=== PATIENT | male | born 1935 | race Caucasian/White ===

== ENCOUNTER 2016-06-12 13:57 | Emergency (ER) | payer MEDICARE, BC ==
[2016-06-12] MEDS ORDERED: PROMETHAZINE HCL 25 MG/ML VIAL IVP ONE (15:06)
[2016-06-12 15:33] LABS: HEMATOCRIT 45.5 % (42.0-52.0); HEMOGLOBIN 15.3 gm/dl (14.0-18.0); MEAN CELL VOLUME 90.6 fl (81-97); MEAN CORPUSCULAR HEMOGLOBIN 30.5 pg (27-33); MEAN CORPUSCULAR HGB CONC 33.6 g/dl (32-36); MEAN PLATELET VOLUME 10.9 fl (7.4-10.4); PLATELET COUNT 316 K/uL (130-400); RED BLOOD COUNT 5.02 M/uL (4.40-5.70); RED CELL DISTRIBUTION WIDTH 13.8 % (11.5-14.5); WHITE BLOOD COUNT W/O DIFF 10.3 K/uL (4.2-12.2)
[2016-06-12 15:44] LABS: ALB/GLOB RATIO 1.6 (1.1-1.8); ALBUMIN 4.6 gm/dL (3.5-5.0); ALKALINE PHOSPHATASE 94 U/L (38-126); ALT/SGPT 31 U/L (21-72); ANION GAP 13.6 (7-16); AST/SGOT 24 U/L (17-59); BLOOD UREA NITROGEN 23 mg/dL (9-20); CARBON DIOXIDE 26.4 mmol/L (22-30); CREATININE 1.2 mg/dL (0.66-1.25); EST GLOMERULAR FILTRATION RATE > 60 ml/min; GLUCOSE,RANDOM 139 mg/dL (70-110); LIPASE 79 U/L (23-300); TOTAL PROTEIN 7.5 gm/dL (6.3-8.2)
[2016-06-12 17:15] LABS: URINE APPEARANCE CLEAR; URINE BILIRUBIN NEGATIVE (NEGATIVE); URINE BLOOD NEGATIVE (NEGATIVE); URINE COLOR YELLOW; URINE KETONE 15 mg/dL (NEGATIVE); URINE LEUKOCYTE ESTERASE NEGATIVE (NEGATIVE); URINE NITRITE NEGATIVE (NEGATIVE); URINE PROTEIN NEGATIVE (NEGATIVE); URINE UROBILINOGEN 0.2 E.U./dL (0.20 - 1.00)
--- NOTE | 2016-06-12 17:30 | Emergency Department Record ---
History of Present Illness - General Chief complaint: Nausea, Vomiting, Diarrhea Stated complaint: WEAK,VOMITING Time Seen by Provider: 06/12/16 14:04 Source: Patient, Family Mode of Arrival: Wheelchair Limitations: No limitations - History of Present Illness Initial comments: pt brought in by daughter for vomiting. pt vomited twice. MD complaint: Nausea, Vomiting Onset/Timin -: Hour(s) Improves with: None Worsens with: None Associated Symptoms: Nausea/vomiting - Related Data Home Medications Medication Instructions Recorded Confirmed Last Taken Amlodipine Besylate [Amlodipine 5 mg PO DAILY 10/16/13 11/05/15 11/04/15 Besylate] Memantine HCl [Namenda Xr] 28 mg PO DAILY 10/16/13 11/05/15 11/04/15 Pregabalin [Lyrica] 75 mg PO BID 10/16/13 11/05/15 11/04/15 Rivastigmine [Exelon] 13.3 mg TOP DAILY 10/16/13 11/05/15 11/04/15 Rosuvastatin Calcium [Crestor] 10 mg PO QHS 10/16/13 11/05/15 11/04/15 Previous Rx's Medication Instructions Recorded Omeprazole [Prilosec] 20 mg PO DAILY #30 capsule. 12/10/13 Allergies Allergy/AdvReac Type Severity Reaction Status Date / Time shellfish derived Allergy Unknown ANAPHYLAXIS Verified 06/12/16 15:26 [SHELLFISH DERIVED] Latex Allergy: Allergy Unknown RASH Uncoded 03/25/15 11:18 Travel Screening - Travel/Exposure Within Last 30 Days Have you traveled within the last 30 days?: No - Travel/Exposure Within Last Year Have you traveled outside the [place] in the last year?: No - Additonal Travel Details Have you been exposed to anyone with a communicable illness?: No - Travel Symptoms Symptom Screening: None Review of Systems Reviewed: No additional complaints except as noted below Constitutional: Reports: As per HPI. Denies: Chills, Fever, Malaise, Night sweats, Weakness, Weight change Eyes: Reports: As per HPI. Denies: Eye discharge, Eye pain, Photophobia, Vision change ENT: Reports: As per HPI. Denies: Congestion, Dental pain, Ear pain, Epistaxis , Hearing loss, Throat pain Respiratory: Reports: As per HPI. Denies: Cough, Dyspnea, Hemoptysis, Stridor, Wheezes Cardiovascular: Reports: As per HPI. Denies: Arrhythmia, Chest pain, Dyspnea on exertion, Edema, Murmurs, Orthopnea, Palpitations, Paroxysmal nocturnal dyspnea, Rheumatic Fever, Syncope Endocrine: Reports: As per HPI. Denies: Fatigue, Heat or cold intolerance, Polydipsia, Polyuria Gastrointestinal: Reports: As per HPI. Denies: Abdominal pain, Constipation, Diarrhea, Hematemesis, Hematochezia, Melena, Nausea, Vomiting Genitourinary: Reports: As per HPI. Denies: Dysuria, Frequency, Hematuria, Incontinence, Retention, Testicular pain, Testicular mass, Urgency Musculoskeletal: Reports: As per HPI. Denies: Arthralgia, Back pain, Gout, Joint swelling, Myalgia, Neck pain Skin: Reports: As per HPI. Denies: Bruising, Change in color, Change in hair/ nails, Lesions, Pruritus, Rash Neurological: Reports: As per HPI. Denies: Abnormal gait, Confusion, Headache, Numbness, Paresthesias, Seizure, Tingling, Tremors, Vertigo, Weakness Psychiatric: Reports: As per HPI. Denies: Anxiety, Auditory hallucinations, Depression, Homicidal thoughts, Suicidal thoughts, Visual hallucinations Hematological/Lymphatic: Reports: As per HPI. Denies: Anemia, Blood Clots, Easy bleeding, Easy bruising, Swollen glands Past Medical History - SOCIAL HISTORY Smoking Status: Never smoker Alcohol Use: None Drug Use: None - RESPIRATORY Hx Respiratory Disorders: Yes Hx Asthma: Yes - CARDIOVASCULAR Hx Cardio Disorders: Yes Hx Hypertension: Yes Comment:: hypercholesteremia - NEURO Hx Neuro Disorders: Yes Hx Dementia: Yes (Alzheimers) - GI Hx GI Disorders: Yes Hx Reflux: Yes - Hx Genitourinary Disorders: No - ENDOCRINE Hx Endocrine Disorders: No - MUSCULOSKELETAL Hx Musculoskeletal Disorders: Yes Hx Arthritis: Yes - PSYCH Hx Psych Problems: No - HEMATOLOGY/ONCOLOGY Hx Hematology/Oncology Disorders: No Family Medical History Any Significant Family History?: No Family Hx Comment (NOT TO BE USED IN PLACE OF ITEMS BELOW): unknown at this time Physical Exam - General General Appearance: Alert, Oriented x3, Cooperative, Mild distress - Head Head exam: Normal inspection - Eye Eye exam: Normal appearance, PERRL, EOMI Pupils: Normal accommodation - ENT ENT exam: Normal exam, Mucous membranes moist, Normal external ear exam, Normal orophraynx Ear exam: Normal external inspection. negative: External canal tenderness Nasal Exam: Normal inspection. negative: Discharge, Sinus tenderness Mouth exam: Normal external inspection, Tongue normal Teeth exam: Normal inspection. negative: Dental caries Throat exam: Normal inspection. negative: Tonsillar erythema, Tonsillar exudate - Neck Neck exam: Normal inspection, Full ROM. negative: Tenderness - Respiratory Respiratory exam: Normal lung sounds bilaterally. negative: Respiratory distress - Cardiovascular Cardiovascular Exam: Regular rate, Normal rhythm, Normal heart sounds - GI/Abdominal GI/Abdominal exam: Soft, Normal bowel sounds. negative: Tenderness - Rectal Rectal exam: Deferred - exam: Deferred - Extremities Extremities exam: Normal inspection, Full ROM, Normal capillary refill. negative: Tenderness - Back Back exam: Reports: Normal inspection, Full ROM. Denies: Muscle spasm, Rash noted, Tenderness - Neurological Neurological exam: Alert, CN II-XII intact, Normal gait, Oriented X3 - Psychiatric Psychiatric exam: Normal affect, Normal mood - Skin Skin exam: Dry, Intact, Normal color, Warm Course Vital Signs 06/12/16 06/12/16 14:04 17:11 Temperature 97.4 F L 97.5 F L Pulse Rate 57 L Pulse Rate [ 83 Pulse Ox Probe] Respiratory 18 16 Rate Blood Pressure 141/73 Blood Pressure 144/76 [Left Arm] Pulse Ox 98 97 - Reevaluation(s) Reevaluation #1: 06/12/16 17:30 pt has had no further vomiting and states he feels fine Medical Decision Making - Lab Data Result diagrams: 06/12/16 15:25 06/12/16 15:25 Lab Results 06/12/16 06/12/16 06/12/16 Range/Units 15:25 15:25 15:25 WBC 10.3 (4.2-12.2) K/uL RBC 5.02 (4.40-5.70) M/uL Hgb 15.3 (14.0-18.0) gm/dl Hct 45.5 (42.0-52.0) % MCV 90.6 (81-97) fl MCH 30.5 (27-33) pg MCHC 33.6 (32-36) g/dl RDW 13.8 (11.5-14.5) % Plt Count 316 (130-400) K/uL MPV 10.9 H (7.4-10.4) fl Neutrophils % 92.0 H (47-80) % Lymphocytes % 5.0 L (16-45) % Monocytes % 3.0 (0-9) % Eosinophils % Not Reportable Basophils % Not Reportable Sodium 137 (136-145) mmol/L Potassium 4.2 (3.5-5.1) mmol/L Chloride 97 L (98-107) mmol/L Carbon Dioxide 26.4 (22-30) mmol/L Anion Gap 13.6 (7-16) BUN 23 H (9-20) mg/dL Creatinine 1.2 (0.66-1.25) mg/dL Estimated GFR > 60 ml/min Random Glucose 139 H (70-110) mg/dL Calcium 9.2 (8.5-10.1) mg/dL Total Bilirubin 0.90 (0.2-1.3) mg/dL AST 24 (17-59) U/L ALT 31 (21-72) U/L Alkaline Phosphatase 94 (38-126) U/L Total Protein 7.5 (6.3-8.2) gm/dL Albumin 4.6 (3.5-5.0) gm/dL Globulin 2.9 (1.4-4.8) gm/dL Albumin/Globulin Ratio 1.6 (1.1-1.8) Lipase 79 (23-300) U/L Urine Color Yellow Urine Appearance Clear Urine pH 8.0 (5.0-8.0) Ur Specific [place] 1.015 (1.002-1.030) Urine Protein Negative (NEGATIVE) Urine Glucose (UA) 100 mg/dl H (NEGATIVE) Urine Ketones 15 mg/dl H (NEGATIVE) Urine Blood Negative (NEGATIVE) Urine Nitrite Negative (NEGATIVE) Urine Bilirubin Negative (NEGATIVE) Urine Urobilinogen 0.2 (0.20 - 1.00) E.U./dL Ur Leukocyte Esterase Negative (NEGATIVE) Disposition Disposition: Discharge Clinical Impression: Vomiting Qualifiers: Vomiting type: unspecified Vomiting Intractability: unspecified Nausea presence : with nausea Qualified Code(s): R11.2 - Nausea with vomiting, unspecified Disposition: Home, Self-Care Condition: (1) Good Instructions: Acute Nausea and Vomiting (ED) Additional Instructions: follow up with family doctor. return sooner if worse. monitor closely Forms: Patient Portal Access
== END 2016-06-12 17:46 | disposition home or self-care (01) ==
LOC: ER 13:57
DX: R11.2 Nausea with vomiting, unspecified (principal); R19.7 Diarrhea, unspecified; R53.1 Weakness; I10 Essential (primary) hypertension
CPT/HCPCS: 80053; 81003; 83690; 85027; 96374; 99284; J2550

== ENCOUNTER 2017-06-08 13:06 | Emergency (ER) | payer MEDICARE, BC ==
[2017-06-08] MEDS ORDERED: 0.9 % SODIUM CHLORIDE 1,000 ML BAG IV ONE (13:34)
[2017-06-08] MEDS ORDERED: ONDANSETRON HCL IV 4 MG/2 ML VIAL IVP ONE (13:34)
--- NOTE | 2017-06-08 13:41 | Emergency Department Record ---
History of Present Illness - General Stated Complaint: VOMITING Time Seen by Provider: 06/08/17 13:34 Source: Patient Mode of Arrival: Ambulatory Limitations: No limitations - History of Present Illness Initial Comments: 81 yo male presents with vomiting and decreased appetite. He has not felt well this week. His daughter reports he is eating less and drinking less. He has allergies that cause nasal congestion. He has vomited in the mornings several times. He denies any abdominal pain just nausea. No diarrhea. No fevers. He has been somewhat frail over the last year but still lives alone with daily home health aid 6 days a week for 4 hours. MD Complaint: Abdominal pain -: Days(s) (1) Location: Other Radiation: None Migration to: No migration Severity: Moderate Quality: Other (Nausea) Improves With: Nothing Worsens With: Nothing - Related Data Previous Rx's Medication Instructions Recorded Ondansetron [Zofran Odt] 4 mg PO Q8H #12 tab.rapdis 06/08/17 Allergies Allergy/AdvReac Type Severity Reaction Status Date / Time shellfish derived Allergy Unknown ANAPHYLAXIS Unverified 03/11/17 09:15 [SHELLFISH DERIVED] Latex Allergy: Allergy Unknown RASH Uncoded 03/25/15 11:18 Review of Systems Constitutional: Reports: Malaise, Weakness. Denies: Chills, Fever Eyes: Denies: Eye discharge ENT: Denies: Congestion, Throat pain Respiratory: Denies: Cough, Stridor, Wheezes Cardiovascular: Denies: Chest pain, Syncope Endocrine: Reports: Fatigue Gastrointestinal: Reports: Vomiting Genitourinary: Denies: Dysuria, Frequency, Hematuria Musculoskeletal: Denies: Arthralgia, Back pain, Myalgia Skin: Denies: Bruising, Change in color, Rash Neurological: Denies: Confusion Psychiatric: Denies: Anxiety Hematological/Lymphatic: Denies: Blood Clots, Easy bleeding, Easy bruising, Swollen glands Past Medical History - SOCIAL HISTORY Smoking Status: Never smoker Drug Use: None - RESPIRATORY Hx Respiratory Disorders: Yes Hx Asthma: Yes - CARDIOVASCULAR Hx Cardio Disorders: Yes Hx Hypertension: Yes Comment:: hypercholesteremia - NEURO Hx Neuro Disorders: Yes Hx Dementia: Yes (Alzheimers) - GI Hx GI Disorders: Yes Hx Reflux: Yes - Hx Genitourinary Disorders: No - ENDOCRINE Hx Endocrine Disorders: No - MUSCULOSKELETAL Hx Musculoskeletal Disorders: Yes Hx Arthritis: Yes - PSYCH Hx Psych Problems: No - HEMATOLOGY/ONCOLOGY Hx Hematology/Oncology Disorders: No Family Medical History Family Hx Comment (NOT TO BE USED IN PLACE OF ITEMS BELOW): unknown at this time Physical Exam - General General Appearance: Alert, Cooperative, No acute distress Limitations: No limitations (chronic dementia) - Head Head exam: Atraumatic, Normal inspection Head exam detail: negative: Abrasion, Contusion, Hematoma - Eye Eye exam: Normal appearance, PERRL. negative: Conjunctival injection, Scleral icterus - ENT ENT exam: Normal exam, Mucous membranes moist, Normal orophraynx. negative: Mucous membranes dry Ear exam: Normal external inspection Nasal Exam: Normal inspection Mouth exam: Normal external inspection Teeth exam: Normal inspection Throat exam: Normal inspection. negative: Tonsillar erythema, Tonsillar exudate - Neck Neck exam: Normal inspection, Full ROM. negative: Tenderness - Respiratory Respiratory exam: Normal lung sounds bilaterally. negative: Accessory muscle use, Respiratory distress, Rhonchi, Stridor, Wheezes - Cardiovascular Cardiovascular Exam: Regular rate, Normal rhythm, Normal heart sounds - GI/Abdominal GI/Abdominal exam: Soft. negative: Distended, Guarding, Mass, Rebound, Rigid, Tenderness - Rectal Rectal exam: Deferred - exam: Deferred - Extremities Extremities exam: Normal inspection, Full ROM, Normal capillary refill. negative: Pedal edema, Tenderness - Back Back exam: Reports: Normal inspection - Neurological Neurological exam: Alert, Normal gait, Oriented X3, Reflexes normal - Psychiatric Psychiatric exam: Normal affect, Normal mood. negative: Agitated, Anxious - Skin Skin exam: Dry, Intact, Normal color, Warm Course Vital Signs 06/08/17 13:23 Temperature 97.4 F L Pulse Rate [ 77 Pulse Ox Probe] Respiratory 14 Rate Blood Pressure 163/78 [Left Arm] Pulse Ox 98 - Reevaluation(s) Reevaluation #1: 06/08/17 15:15 The labs were reviewed CR is 1.3 which is improved from the last CR No acute changes on the CMP,Lipase The CBC no acute changes The patient is much improved with the Zofran and is on a PO challenge 06/08/17 16:09 The patient is doing very well. He ate a sandwich and drink. He is hungry for a Whopper now. We discussed daily weighing to track a trend, discussed reasons to return to the ED He has followup on Saturday with PCP Medical Decision Making - Lab Data Result diagrams: 06/08/17 14:00 06/08/17 14:00 Disposition Disposition: Discharge Clinical Impression: Vomiting Disposition: Home, Self-Care Condition: (1) Good Instructions: Acute Nausea and Vomiting (ED) Additional Instructions: Follow up on Saturday as scheduled with your family doctor Return sooner if worse, vomiting, fever, pain or any concerns You may use a Zofran every 8-12 hours if nausea Weigh yourself daily or every other day and keep track. You weighed 142 pounds 12 ounces today Prescriptions: Ondansetron [Zofran Odt] 4 mg PO Q8H #12 tab.rapdis Time of Disposition: 16:11 Quality - Quality Measures Quality Measures: N/A - Blood Pressure Screening Does Patient Have Any of the Following: Active Dx of HTN Blood Pressure Classification: Hypertensive Reading Systolic Measurement: 160 Diastolic Measurement: 78 Screening for High Blood Pressure: Patient Exclusion, Hx of HTN [G9744]
[2017-06-08 14:09] LABS: BASO % 0.3 % (0-6); EOS % 0.6 % (0-6); GRAN % 71.3 % (47-80); HEMATOCRIT 43.7 % (42.0-52.0); HEMOGLOBIN 14.6 gm/dl (14.0-18.0); LYMPH % 19.2 % (16-45); MEAN CELL VOLUME 90.9 fl (81-97); MEAN CORPUSCULAR HEMOGLOBIN 30.4 pg (27-33); MEAN CORPUSCULAR HGB CONC 33.4 g/dl (32-36); MEAN PLATELET VOLUME 9.7 fl (7.4-10.4); MONO % 8.6 % (0-9); PLATELET COUNT 338 K/uL (130-400); RED BLOOD COUNT 4.81 M/uL (4.40-5.70); RED CELL DISTRIBUTION WIDTH 13.6 % (11.5-14.5); WHITE BLOOD COUNT W/O DIFF 7.9 K/uL (4.2-12.2)
[2017-06-08 14:27] LABS: BILIRUBIN,TOTAL 0.7 mg/dL (0.2-1.0); CREATININE 1.3 mg/dL (0.7-1.2); TOTAL PROTEIN 7.2 g/dL (6.6-8.7)
[2017-06-08 14:32] LABS: ALB/GLOB RATIO 1.7 (1.1-1.8); ALBUMIN 4.5 g/dL (4.0-5.0)
[2017-06-08 14:42] LABS: URINE APPEARANCE CLEAR; URINE BILIRUBIN NEGATIVE (NEGATIVE); URINE BLOOD NEGATIVE (NEGATIVE); URINE COLOR YELLOW; URINE GLUCOSE (UA) NEGATIVE (NEGATIVE); URINE KETONE TRACE (NEGATIVE); URINE LEUKOCYTE ESTERASE NEGATIVE (NEGATIVE); URINE NITRITE NEGATIVE (NEGATIVE); URINE PROTEIN NEGATIVE (NEGATIVE); URINE UROBILINOGEN 0.2 E.U./dL (0.20 - 1.00)
== END 2017-06-08 16:22 | disposition home or self-care (01) ==
LOC: ER 13:06
DX: R11.2 Nausea with vomiting, unspecified (principal); I10 Essential (primary) hypertension; G30.9 Alzheimer's disease, unspecified; F02.80 Dementia in other diseases classified elsewhere, unspecified severity, without behavioral disturbance, psychotic disturbance, mood disturbance, and anxiety
CPT/HCPCS: 99284 ×2; 96374; 96361; 83690; 85025; 80053; 81003; J2405; J7030

== ENCOUNTER 2017-08-12 15:43 | Emergency (ER) | payer MEDICARE, BC ==
--- NOTE | 2017-08-12 16:14 | Emergency Department Record ---
History of Present Illness - General Chief complaint: Weakness Stated complaint: CONFUSSION,WEAK,SHAKEY Time Seen by Provider: 08/12/17 16:13 Source: Patient, Family Mode of Arrival: Wheelchair Limitations: Other (chronic dementia) - History of Present Illness Initial comments: 81 yo male presents to the ED with his daughter for acute confusion. The patient lives on his own. He does have a rn critical care 3 hours 6 days a week. This afternoon he seemed confused, wandered in the yard to coal picker sticks. No injury, no pain, no weakness. He states he is tired and does not remember going out in to the yard. He has chronic memory issues. The daughter states he is near his baseline now. No dysarthia. No vision changes. MD Complaint: Generalized weakness -: Unknown Location: Generalized Severity: Mild Consistency: Constant Improves with: None Worsens with: None Associated Symptoms: Other - [place] Coma Scale Eye Response: (4) Open spontaneously Motor Response: (6) Obeys commands Verbal Response: (5) Oriented Trupti Total: 15 - Related Data Allergies Allergy/AdvReac Type Severity Reaction Status Date / Time shellfish derived Allergy Unknown ANAPHYLAXIS Unverified 06/10/17 11:50 [SHELLFISH DERIVED] Latex Allergy: Allergy Unknown RASH Uncoded 03/25/15 11:18 Travel Screening - Travel/Exposure Within Last 30 Days Have you traveled within the last 30 days?: No Review of Systems Constitutional: Denies: Chills, Fever, Malaise, Weakness Eyes: Denies: Eye discharge ENT: Denies: Congestion, Throat pain Respiratory: Denies: Cough, Dyspnea, Hemoptysis, Stridor, Wheezes Cardiovascular: Denies: Chest pain, Palpitations, Syncope Endocrine: Reports: Fatigue Gastrointestinal: Denies: Abdominal pain, Diarrhea, Nausea, Vomiting Genitourinary: Denies: Dysuria, Frequency, Hematuria Musculoskeletal: Denies: Arthralgia, Back pain, Joint swelling, Myalgia, Neck pain Skin: Denies: Bruising, Change in color, Rash Neurological: Reports: Confusion. Denies: Abnormal gait, Headache, Numbness, Seizure, Tingling, Tremors, Vertigo, Weakness Psychiatric: Denies: Anxiety Hematological/Lymphatic: Denies: Blood Clots, Easy bleeding, Easy bruising, Swollen glands Past Medical History - SOCIAL HISTORY Smoking Status: Never smoker Alcohol Use: None Drug Use: None - RESPIRATORY Hx Respiratory Disorders: Yes Hx Asthma: Yes - CARDIOVASCULAR Hx Cardio Disorders: Yes Hx Hypertension: Yes Comment:: hypercholesteremia - NEURO Hx Neuro Disorders: Yes Hx Dementia: Yes (Alzheimers) - GI Hx GI Disorders: Yes Hx Reflux: Yes - Hx Genitourinary Disorders: No - ENDOCRINE Hx Endocrine Disorders: No - MUSCULOSKELETAL Hx Musculoskeletal Disorders: Yes Hx Arthritis: Yes - PSYCH Hx Psych Problems: No - HEMATOLOGY/ONCOLOGY Hx Hematology/Oncology Disorders: No Family Medical History Any Significant Family History?: No Family Hx Comment (NOT TO BE USED IN PLACE OF ITEMS BELOW): unknown at this time Physical Exam - General General Appearance: Alert, Cooperative, No acute distress, Other (alert to place , name, and duaghter's name. She states this is baseline) Limitations: No limitations - Head Head exam: Atraumatic, Normocephalic, Normal inspection - Eye Eye exam: Normal appearance, PERRL. negative: Conjunctival injection, Scleral icterus - ENT ENT exam: Normal exam, Mucous membranes moist Ear exam: Normal external inspection Nasal Exam: Normal inspection Mouth exam: Normal external inspection Teeth exam: Normal inspection Throat exam: Normal inspection - Neck Neck exam: Normal inspection, Full ROM. negative: Tenderness - Respiratory Respiratory exam: Normal lung sounds bilaterally. negative: Respiratory distress - Cardiovascular Cardiovascular Exam: Regular rate, Normal rhythm, Normal heart sounds Peripheral Pulses: 2+: Radial (R), Radial (L) - GI/Abdominal GI/Abdominal exam: Soft. negative: Tenderness - Rectal Rectal exam: Deferred - exam: Deferred - Extremities Extremities exam: Normal inspection, Full ROM, Normal capillary refill. negative: Pedal edema, Tenderness - Back Back exam: Reports: Normal inspection, Full ROM. Denies: Muscle spasm, Rash noted, Tenderness - Neurological Neurological exam: Alert, CN II-XII intact, Normal gait, Other (Baseline per daughter, convsational, clear speech, noted memory impariment (old per daughter) ). negative: Abnormal gait, Altered, Motor sensory deficit, Oriented X3 (At his baseline per daughter) - Psychiatric Psychiatric exam: Normal affect, Normal mood - Skin Skin exam: Dry, Intact, Normal color, Warm Course Vital Signs 08/12/17 15:51 Temperature 97.3 F L Pulse Rate 68 Respiratory 16 Rate Blood Pressure 168/81 Pulse Ox 96 - Reevaluation(s) Reevaluation #1: EKG rate is 66, sinus rhythm, axis is left, ST no acute changes, poor R wave progression. No changes from 11/05/15 08/12/17 16:13 08/12/17 17:15 The CBC and CMP were reviewed. No acute changes. UA is pending. The HCT was read as atrophy and small vessel ischemic disease. No acute process. 08/12/17 18:18 UA is normal His daughter is comfortable that the patient is at his baseline She is comfortable taking him home. She monitors him as well as he has home health care. 08/12/17 18:50 The patient is doing very well after his IVF. He is at his baseline stable for DC Medical Decision Making - Lab Data Result diagrams: 08/12/17 16:00 08/12/17 16:00 Disposition Disposition: Discharge Clinical Impression: Weakness generalized, Dehydration Disposition: Home, Self-Care Condition: (1) Good Instructions: Weakness (ED) Additional Instructions: Rest and stay well hydrated Return to the ED if you have any new concerns, return of symptoms or questions Call your family doctor tomorrow for close follow up Forms: Patient Portal Access Time of Disposition: 18:24 Quality - Quality Measures Quality Measures: N/A - Blood Pressure Screening Does Patient Have Any of the Following: Active Dx of HTN Blood Pressure Classification: Pre-Hypertensive BP Reading Systolic Measurement: 168 Diastolic Measurement: 81 Screening for High Blood Pressure: Patient Exclusion, Hx of HTN [G9744]
[2017-08-12] MEDS ORDERED: SODIUM CHLORIDE 0.9% 500 ML IV ONE (16:20)
[2017-08-12 16:44] LABS: BASO % 0.1 % (0-6); EOS % 0.6 % (0-6); GRAN % 65.3 % (47-80); HEMATOCRIT 44.9 % (42.0-52.0); LYMPH % 26.5 % (16-45); MEAN CELL VOLUME 90.5 fl (81-97); MEAN CORPUSCULAR HEMOGLOBIN 30.2 pg (27-33); MEAN CORPUSCULAR HGB CONC 33.4 g/dl (32-36); MEAN PLATELET VOLUME 10.9 fl (7.4-10.4); MONO % 7.5 % (0-9); PLATELET COUNT 364 K/uL (130-400); RED BLOOD COUNT 4.96 M/uL (4.40-5.70); RED CELL DISTRIBUTION WIDTH 14.2 % (11.5-14.5); WHITE BLOOD COUNT W/O DIFF 7.2 K/uL (4.2-12.2)
[2017-08-12 16:49] LABS: BLOOD UREA NITROGEN 25 mg/dL (8-23); CREATININE 1.1 mg/dL (0.7-1.2); EST GLOMERULAR FILTRATION RATE > 60 mL/min
[2017-08-12 16:50] LABS: TOTAL PROTEIN 7.3 g/dL (6.6-8.7)
[2017-08-12 16:52] LABS: GLUCOSE,RANDOM 112 mg/dL (74-109)
[2017-08-12 16:55] LABS: ALB/GLOB RATIO 1.7 (1.1-1.8); ALBUMIN 4.6 g/dL (4.0-5.0); ALKALINE PHOSPHATASE 92 U/L (40-129); ALT/SGPT 11 U/L (<41); AST/SGOT 20 U/L (10.0-50.0)
[2017-08-12 18:10] LABS: URINE APPEARANCE CLEAR; URINE BILIRUBIN NEGATIVE (NEGATIVE); URINE BLOOD NEGATIVE (NEGATIVE); URINE COLOR YELLOW; URINE GLUCOSE (UA) NEGATIVE (NEGATIVE); URINE KETONE 15 mg/dL (NEGATIVE); URINE LEUKOCYTE ESTERASE NEGATIVE (NEGATIVE); URINE NITRITE NEGATIVE (NEGATIVE); URINE PROTEIN NEGATIVE (NEGATIVE); URINE UROBILINOGEN 0.2 E.U./dL (0.20 - 1.00)
--- NOTE | 2017-08-13 08:30 | CT SCAN REPORT ---
EXAM: CT OF THE BRAIN WITHOUT CONTRAST HISTORY: WEAKNESS. TECHNIQUE: CT of the brain without contrast was obtained. Comparison: Prior CT of the brain dated 03/25/15. FINDINGS: The globes are intact. The paranasal sinuses and mastoid air cells are unremarkable. No displaced or depressed skull fracture. No intra or extraaxial hemorrhage. CT is limited for evaluation of acute infarct. No CT evidence for large or territorial acute infarct. Diffuse age appropriate atrophy. Hypodensities in the periventricular and subcortical white matter consistent with sequelae of small vessel ischemic change. No mass or midline shift. IMPRESSION: ATROPHY. SMALL VESSEL ISCHEMIC CHANGE. JOB NUMBER: [id number] [facility]
== END 2017-08-12 19:02 | disposition home or self-care (01) ==
LOC: ER 15:43
DX: R53.1 Weakness (principal); E86.0 Dehydration; I10 Essential (primary) hypertension; G30.9 Alzheimer's disease, unspecified; F02.80 Dementia in other diseases classified elsewhere, unspecified severity, without behavioral disturbance, psychotic disturbance, mood disturbance, and anxiety
CPT/HCPCS: 70450; 80053; 81003; 85025; 93005; 93010; 99284

== ENCOUNTER 2017-09-08 12:11 | Inpatient (IN) | payer MEDICARE, BC ==
[2017-09-08] MEDS ORDERED: SODIUM CHLORIDE 0.9% 500 ML IV ONE (12:59)
[2017-09-08 13:28] LABS: HEMATOCRIT 43.8 % (42.0-52.0); HEMOGLOBIN 14.6 gm/dl (14.0-18.0); MEAN CELL VOLUME 90.7 fl (81-97); MEAN CORPUSCULAR HEMOGLOBIN 30.2 pg (27-33); MEAN CORPUSCULAR HGB CONC 33.3 g/dl (32-36); MEAN PLATELET VOLUME 10.8 fl (7.4-10.4); PLATELET COUNT 391 K/uL (130-400); RED BLOOD COUNT 4.83 M/uL (4.40-5.70); RED CELL DISTRIBUTION WIDTH 14.3 % (11.5-14.5); URINE APPEARANCE CLEAR; URINE BILIRUBIN NEGATIVE (NEGATIVE); URINE BLOOD NEGATIVE (NEGATIVE); URINE COLOR YELLOW; URINE KETONE NEGATIVE (NEGATIVE); URINE LEUKOCYTE ESTERASE NEGATIVE (NEGATIVE); URINE NITRITE NEGATIVE (NEGATIVE); URINE PROTEIN NEGATIVE (NEGATIVE); URINE UROBILINOGEN 0.2 E.U./dL (0.20 - 1.00); WHITE BLOOD COUNT W/O DIFF 11.8 K/uL (4.2-12.2)
[2017-09-08 13:37] LABS: PLATELET ESTIMATE NORMAL (NORMAL)
[2017-09-08 13:42] LABS: BLOOD UREA NITROGEN 25 mg/dL (8-23); CREATININE 1.2 mg/dL (0.7-1.2); EST GLOMERULAR FILTRATION RATE > 60 mL/min
[2017-09-08 13:43] LABS: TOTAL PROTEIN 7.4 g/dL (6.6-8.7)
[2017-09-08 13:45] LABS: GLUCOSE,RANDOM 164 mg/dL (74-109)
[2017-09-08 13:48] LABS: ALB/GLOB RATIO 1.6 (1.1-1.8); ALBUMIN 4.6 g/dL (4.0-5.0); ALKALINE PHOSPHATASE 91 U/L (40-129); ALT/SGPT 11 U/L (<41); AST/SGOT 22 U/L (10.0-50.0)
--- NOTE | 2017-09-08 15:09 | Emergency Department Record ---
History of Present Illness - General Chief complaint: Weakness Stated complaint: WEAK Time Seen by Provider: 09/08/17 12:30 Source: Patient Mode of Arrival: EMS - History of Present Illness Initial comments: patient was weaker than usual today and EMS brought him in to the ED and daughter. No cough and he has dementia since 2011. Onset/Timin -: Days(s) Location: Generalized Severity scale (1-10): 4 Context: History of similar Associated Symptoms: Denies other symptoms - [place] Coma Scale Eye Response: (4) Open spontaneously Motor Response: (6) Obeys commands Verbal Response: (5) Oriented [place] Total: 15 - Symptoms of Stroke Symptom Onset Unknown: Yes - Related Data Allergies Allergy/AdvReac Type Severity Reaction Status Date / Time shellfish derived Allergy Unknown ANAPHYLAXIS Verified 09/08/17 12:27 [SHELLFISH DERIVED] Latex Allergy: Allergy Unknown RASH Uncoded 09/08/17 12:27 Travel Screening - Travel/Exposure Within Last 30 Days Have you traveled within the last 30 days?: No - Travel/Exposure Within Last Year Have you traveled outside the [place] in the last year?: No - Additonal Travel Details Have you been exposed to anyone with a communicable illness?: No - Travel Symptoms Symptom Screening: None Review of Systems Reviewed: No additional complaints except as noted below Constitutional: Reports: As per HPI. Denies: Chills, Fever, Malaise, Night sweats, Weakness, Weight change Eyes: Reports: As per HPI. Denies: Eye discharge, Eye pain, Photophobia, Vision change ENT: Reports: As per HPI, Congestion. Denies: Dental pain, Ear pain, Epistaxis , Hearing loss, Throat pain Respiratory: Reports: As per HPI. Denies: Cough, Dyspnea, Hemoptysis, Stridor, Wheezes Cardiovascular: Reports: As per HPI. Denies: Arrhythmia, Chest pain, Dyspnea on exertion, Edema, Murmurs, Orthopnea, Palpitations, Paroxysmal nocturnal dyspnea, Rheumatic Fever, Syncope Endocrine: Reports: As per HPI. Denies: Fatigue, Heat or cold intolerance, Polydipsia, Polyuria Gastrointestinal: Reports: As per HPI. Denies: Abdominal pain, Constipation, Diarrhea, Hematemesis, Hematochezia, Melena, Nausea, Vomiting Genitourinary: Reports: As per HPI. Denies: Dysuria, Frequency, Hematuria, Incontinence, Retention, Testicular pain, Testicular mass, Urgency Musculoskeletal: Reports: As per HPI. Denies: Arthralgia, Back pain, Gout, Joint swelling, Myalgia, Neck pain Skin: Reports: As per HPI. Denies: Bruising, Change in color, Change in hair/ nails, Lesions, Pruritus, Rash Neurological: Reports: As per HPI. Denies: Abnormal gait, Confusion, Headache, Numbness, Paresthesias, Seizure, Tingling, Tremors, Vertigo, Weakness Psychiatric: Reports: As per HPI. Denies: Anxiety, Auditory hallucinations, Depression, Homicidal thoughts, Suicidal thoughts, Visual hallucinations Hematological/Lymphatic: Reports: As per HPI. Denies: Anemia, Blood Clots, Easy bleeding, Easy bruising, Swollen glands Past Medical History - SOCIAL HISTORY Smoking Status: Never smoker Alcohol Use: None Drug Use: None - RESPIRATORY Hx Respiratory Disorders: Yes Hx Asthma: Yes - CARDIOVASCULAR Hx Cardio Disorders: Yes Hx Hypertension: Yes Comment:: hypercholesteremia - NEURO Hx Neuro Disorders: Yes Hx Dementia: Yes (Alzheimers) - GI Hx GI Disorders: Yes Hx Reflux: Yes - Hx Genitourinary Disorders: No - ENDOCRINE Hx Endocrine Disorders: No - MUSCULOSKELETAL Hx Musculoskeletal Disorders: Yes Hx Arthritis: Yes - PSYCH Hx Psych Problems: No - HEMATOLOGY/ONCOLOGY Hx Hematology/Oncology Disorders: No Family Medical History Any Significant Family History?: Yes Family Hx Comment (NOT TO BE USED IN PLACE OF ITEMS BELOW): unknown at this time Physical Exam - General General Appearance: Alert, Oriented x3, Cooperative, No acute distress - Head Head exam: Normal inspection - Eye Eye exam: Normal appearance, PERRL Pupils: Normal accommodation - ENT ENT exam: Normal exam, Mucous membranes moist, Normal external ear exam, Normal orophraynx, TM's normal bilaterally Ear exam: Normal external inspection. negative: External canal tenderness Nasal Exam: Normal inspection. negative: Discharge, Sinus tenderness Mouth exam: Normal external inspection, Tongue normal Teeth exam: Normal inspection. negative: Dental caries Throat exam: Normal inspection. negative: Tonsillar erythema, Tonsillar exudate - Neck Neck exam: Normal inspection, Full ROM. negative: Tenderness - Respiratory Respiratory exam: Normal lung sounds bilaterally. negative: Respiratory distress - Cardiovascular Cardiovascular Exam: Regular rate, Normal rhythm, Normal heart sounds - GI/Abdominal GI/Abdominal exam: Soft, Normal bowel sounds. negative: Tenderness - Rectal Rectal exam: Deferred - exam: Deferred - Extremities Extremities exam: Normal inspection, Full ROM, Normal capillary refill. negative: Tenderness - Back Back exam: Reports: Normal inspection, Full ROM. Denies: Muscle spasm, Rash noted, Tenderness - Neurological Neurological exam: Alert, Normal gait, Oriented X3, Reflexes normal - Psychiatric Psychiatric exam: Normal affect, Normal mood - Skin Skin exam: Dry, Intact, Normal color, Warm Course Vital Signs 09/08/17 09/08/17 09/08/17 12:17 13:31 14:02 Temperature 97.1 F L Pulse Rate 88 Pulse Rate [ 72 79 Pulse Ox Probe] Respiratory 18 20 18 Rate Blood Pressure 160/92 Blood Pressure 132/86 151/80 [Right Arm] Pulse Ox 99 97 99 09/08/17 14:40 Temperature Pulse Rate Pulse Rate [ 82 Pulse Ox Probe] Respiratory 18 Rate Blood Pressure Blood Pressure 151/80 [Right Arm] Pulse Ox 100 - Reevaluation(s) Reevaluation #1: discussed case with Romana and will admit to Dr. Mtz 09/08/17 15:55 Medical Decision Making - Data Complexity MDM Data: Labs Ordered and/or Reviewed, X-Ray Ordered and/or Reviewed (right basilar atelectasis or developing infiltrate) - Lab Data Result diagrams: 09/08/17 11:58 09/08/17 11:58 Lab Results 09/08/17 09/08/17 09/08/17 Range/Units 11:58 11:58 11:58 WBC 11.8 (4.2-12.2) K/uL RBC 4.83 (4.40-5.70) M/uL Hgb 14.6 (14.0-18.0) gm/dl Hct 43.8 (42.0-52.0) % MCV 90.7 (81-97) fl MCH 30.2 (27-33) pg MCHC 33.3 (32-36) g/dl RDW 14.3 (11.5-14.5) % Plt Count 391 (130-400) K/uL MPV 10.8 H (7.4-10.4) fl Neutrophils % 93.0 H (47-80) % Eosinophils % Not Reportable Basophils % Not Reportable Lymphocytes 4.0 L (16-45) % Monocytes 2.0 (0-9) % Platelet Estimate Normal (NORMAL) RBC Morphology Normal Eosinophil Count 1.0 (0-6) % Sodium 141 (136-145) mmol/L Potassium 4.0 (3.4-4.5) mmol/L Chloride 96 L (98-107) mmol/L Carbon Dioxide 26.0 (22-29) mmol/L Anion Gap 19.0 H (7-16) BUN 25 H (8-23) mg/dL Creatinine 1.2 (0.7-1.2) mg/dL Estimated GFR > 60 mL/min Random Glucose 164 H (74-109) mg/dL Calcium 9.1 (8.8-10.2) mg/dL Total Bilirubin 0.60 (0.2-1.0) mg/dL AST 22 (10.0-50.0) U/L ALT 11 (<41) U/L Alkaline Phosphatase 91 (40-129) U/L Total Protein 7.4 (6.6-8.7) g/dL Albumin 4.6 (4.0-5.0) g/dL Globulin 2.8 (1.4-4.8) gm/dL Albumin/Globulin Ratio 1.6 (1.1-1.8) Urine Color Yellow Urine Appearance Clear Urine pH 7.0 (5.0-8.0) Ur Specific [place] 1.020 (1.002-1.030) Urine Protein Negative (NEGATIVE) Urine Glucose (UA) 500 mg/dl H (NEGATIVE) Urine Ketones Negative (NEGATIVE) Urine Blood Negative (NEGATIVE) Urine Nitrite Negative (NEGATIVE) Urine Bilirubin Negative (NEGATIVE) Urine Urobilinogen 0.2 (0.20 - 1.00) E.U./dL Ur Leukocyte Esterase Negative (NEGATIVE) Disposition Clinical Impression: Dehydration Dementia Qualifiers: Dementia type: Alzheimer's disease Alzheimer's disease onset: late-onset Dementia behavioral disturbance: without behavioral disturbance Qualified Code(s ): G30.1 - Alzheimer's disease with late onset; F02.80 - Dementia in other diseases classified elsewhere without behavioral disturbance Pneumonia Qualifiers: Pneumonia type: due to unspecified organism Laterality: right Lung location: lower lobe of lung Qualified Code(s): J18.1 - Lobar pneumonia, unspecified organism Decision to Admit: Admit from ER Condition: (1) Good Forms: Patient Portal Access Time of Disposition: 15:47 Quality - Quality Measures Quality Measures: N/A - Blood Pressure Screening Does Patient Have Any of the Following: No, Active Dx of HTN Blood Pressure Classification: Hypertensive Reading Systolic Measurement: 160 Diastolic Measurement: 92 Screening for High Blood Pressure: Patient Exclusion, Hx of HTN [G9744]
[2017-09-08] MEDS ORDERED: AZITHROMYCIN 500 MG TABLET PO ONE (15:51)
[2017-09-08] MEDS ORDERED: CEFTRIAXONE SODIUM 1 GM in 0.9 % SODIUM CHLORIDE 100ML 100 ML IVPB ONE (15:52)
[2017-09-08] MEDS ORDERED: CEFTRIAXONE SODIUM 1 GM in 0.9 % SODIUM CHLORIDE 100ML 100 ML IVPB SCH (17:00)
[2017-09-08] MEDS ORDERED: ASPIRIN 81 MG CHEWABLE TABLET PO SCH (17:06)
[2017-09-08] MEDS ORDERED: ACETAMINOPHEN 325 MG TAB PO PRN (17:06)
[2017-09-08] MEDS ORDERED: 0.9 % SODIUM CHLORIDE 1000ML 1,000 ML IV PRN (17:06)
[2017-09-08] MEDS ORDERED: LORATADINE 10 MG TABLET PO SCH (17:06)
[2017-09-08] MEDS ORDERED: MONTELUKAST SODIUM 10MG TABLET PO SCH (17:06)
[2017-09-08] MEDS ORDERED: ONDANSETRON 4 MG ODT TABLET PO PRN (17:06)
[2017-09-08] MEDS: LISINOPRIL 5 MG TABLET PO SCH (17:51)
[2017-09-08] MEDS: AMLODIPINE BESYLATE 5MG TAB PO SCH (17:52)
--- NOTE | 2017-09-08 18:45 | History & Physical ---
History of Present Illness - Date of Service Date of Service for History & Physical: 09/09/17 - History of Present Illness Admitting Diagnosis: RLL pneumonia History of Present Illness: Mr. Arreaga is an 81 year-old male who presented to the ED on 09/08/17 by EMS with his daughter due to concern of worsening weakness. No fever, decreased appetite, nausea, vomiting, or cough. He was diagnosed with Alzheimer's in 2011. He does have a home health aid that comes in 5 days/ week and a weekly visit by a transition social worker that coordinates with pt's daughter ( she is his DPOA). His history included asthma, hypercholesteremia, GERD, and arthritis. In the ED, his BP was 160/92, HR 88, RR 18, 99% on room air, and T 97.1F. His labs were unremarkable, including normal troponin. His UA did show elevated glucose, likely secondary to dehydration, otherwise normal. Chest xray revealed right basilar atelectasis or developing infiltrate. He was admitted to inpatient for pneumonia and evaluation of weakness. IV rocephin 1gm q12h and azithromycin 500mg daily. 09/09/17: Pt. is resting comfortably in bed. He denies cough. He has been up to shower this morning with little assistance. His home health aid is at his bedside. Per home health aid- pt's level of activity often fluctuates from day to day, and she states that he has been slightly more confused being in a different environment than he is used to. Repeat labs this morning were relatively unchanged. His vital signs have remained stable. He did complain of right calf pain last night and venous doppler was completed this morning- results are pending. PT/OT eval ordered today. Will change abx to PO. Case management is working with pt's home health service ([facility])- pt's daughter wants home health 7 days/week for 8 hours per day- she states she is concerned he is not eating and drinking enough when no home health. Travel Screening - Travel/Exposure Within Last 30 Days Have you traveled within the last 30 days?: No - Travel/Exposure Within Last Year Have you traveled outside the [place] in the last year?: No - Additonal Travel Details Have you been exposed to anyone with a communicable illness?: No - Travel Symptoms Symptom Screening: Weakness, Vomiting Review of Systems Constitutional: Reports: As per HPI. Denies: Chills, Fever, Malaise, Night sweats, Weakness, Weight change Eyes: Reports: As per HPI. Denies: Eye discharge, Eye pain, Photophobia, Vision change ENT: Reports: As per HPI, Congestion. Denies: Dental pain, Ear pain, Epistaxis , Hearing loss, Throat pain Respiratory: Reports: As per HPI. Denies: Cough, Dyspnea, Hemoptysis, Stridor, Wheezes Cardiovascular: Reports: As per HPI. Denies: Arrhythmia, Chest pain, Dyspnea on exertion, Edema, Murmurs, Orthopnea, Palpitations, Paroxysmal nocturnal dyspnea, Rheumatic Fever, Syncope Endocrine: Reports: As per HPI. Denies: Fatigue, Heat or cold intolerance, Polydipsia, Polyuria Gastrointestinal: Reports: As per HPI. Denies: Abdominal pain, Constipation, Diarrhea, Hematemesis, Hematochezia, Melena, Nausea, Vomiting Genitourinary: Reports: As per HPI. Denies: Dysuria, Frequency, Hematuria, Incontinence, Retention, Testicular pain, Testicular mass, Urgency Musculoskeletal: Reports: As per HPI. Denies: Arthralgia, Back pain, Gout, Joint swelling, Myalgia, Neck pain Skin: Reports: As per HPI. Denies: Bruising, Change in color, Change in hair/ nails, Lesions, Pruritus, Rash Neurological: Reports: As per HPI. Denies: Abnormal gait, Confusion, Headache, Numbness, Paresthesias, Seizure, Tingling, Tremors, Vertigo, Weakness Psychiatric: Reports: As per HPI. Denies: Anxiety, Auditory hallucinations, Depression, Homicidal thoughts, Suicidal thoughts, Visual hallucinations Hematological/Lymphatic: Reports: As per HPI. Denies: Anemia, Blood Clots, Easy bleeding, Easy bruising, Swollen glands Past Medical History - SOCIAL HISTORY Smoking Status: Never smoker Alcohol Use: None Drug Use: None - RESPIRATORY Hx Respiratory Disorders: Yes Hx Asthma: Yes - CARDIOVASCULAR Hx Cardio Disorders: Yes Hx Hypertension: Yes Comment:: hypercholesteremia - NEURO Hx Neuro Disorders: Yes Hx Dementia: Yes (Alzheimers) - GI Hx GI Disorders: Yes Hx Reflux: Yes - Hx Genitourinary Disorders: No - ENDOCRINE Hx Endocrine Disorders: No - MUSCULOSKELETAL Hx Musculoskeletal Disorders: Yes Hx Arthritis: Yes - PSYCH Hx Psych Problems: No - HEMATOLOGY/ONCOLOGY Hx Hematology/Oncology Disorders: No Family Medical History Any Significant Family History?: Yes Family Hx Comment (NOT TO BE USED IN PLACE OF ITEMS BELOW): unknown at this time H&P Meds/Allergies - Allergies Allergies: Allergies Allergy/AdvReac Type Severity Reaction Status Date / Time shellfish derived Allergy Unknown ANAPHYLAXIS Verified 09/08/17 12:27 [SHELLFISH DERIVED] Latex Allergy: Allergy Unknown RASH Uncoded 09/08/17 12:27 - Active Medications Active Medications: Current Medications Acetaminophen (Tylenol 325mg) 650 mg PO Q6H PRN PRN Reason: PAIN/TEMP Amlodipine Besylate (Norvasc) 5 mg PO DAILY [facility] Last Admin: 09/08/17 17:52 Dose: 5 mg Aspirin (Aspirin Chewable) 81 mg PO QD [facility] Last Admin: 09/08/17 17:51 Dose: 81 mg Atorvastatin Calcium (Lipitor) 40 mg PO QHS [facility] Azithromycin (Zithromax) 500 mg PO DAILY [facility] Enoxaparin Sodium (Lovenox) 40 mg SC DAILY [facility] Sodium Chloride () 1,000 mls @ 50 mls/hr IV .Q20H PRN PRN Reason: LARGE VOLUME IV Ceftriaxone Sodium 1 gm/ (Sodium Chloride) 100 mls @ 100 mls/hr IVPB Q12H [facility] Stop: 09/14/17 04:01 Lisinopril (Zestril) 2.5 mg PO DAILY [facility] Last Admin: 09/08/17 17:51 Dose: 2.5 mg Loratadine (Claritin) 10 mg PO QD [facility] Last Admin: 09/08/17 17:52 Dose: 10 mg Memantine (Namenda) 10 mg PO BID [facility] Montelukast Sodium (Singulair) 10 mg PO QD [facility] Last Admin: 09/08/17 17:52 Dose: 10 mg Non-Formulary Medication (Rivastigmine [Exelon]) 13.3 mg TOP DAILY [facility] Ondansetron HCl (Zofran Odt) 4 mg PO BID PRN PRN Reason: GI UPSET Physical Exam - Vital Signs Vital Signs: Vital Signs - Last 24 Hrs Temp Pulse Pulse Resp BP BP Pulse Ox 09/08/17 17:20 97.9 F 77 18 147/97 95 09/08/17 16:32 75 18 154/85 99 09/08/17 14:40 82 18 151/80 100 09/08/17 14:02 79 18 151/80 99 09/08/17 13:31 72 20 132/86 97 09/08/17 12:17 97.1 F L 88 18 160/92 99 - General General Appearance: Alert, Oriented x3, Cooperative, No acute distress - Head Head exam: Normal inspection - Eye Eye exam: Normal appearance, PERRL Pupils: Normal accommodation - ENT ENT exam: Normal exam, Mucous membranes moist, Normal external ear exam, Normal orophraynx, TM's normal bilaterally Ear exam: Normal external inspection. negative: External canal tenderness Nasal Exam: Normal inspection. negative: Discharge, Sinus tenderness Mouth exam: Normal external inspection, Tongue normal Teeth exam: Normal inspection. negative: Dental caries Throat exam: Normal inspection. negative: Tonsillar erythema, Tonsillar exudate - Neck Neck exam: Normal inspection, Full ROM. negative: Tenderness - Respiratory Respiratory exam: Normal lung sounds bilaterally. negative: Respiratory distress - Cardiovascular Cardiovascular Exam: Regular rate, Normal rhythm, Normal heart sounds - GI/Abdominal GI/Abdominal exam: Soft, Normal bowel sounds. negative: Tenderness - Rectal Rectal exam: Deferred - exam: Deferred - Extremities Extremities exam: Normal inspection, Full ROM, Normal capillary refill. negative: Tenderness - Back Back exam: Reports: Normal inspection, Full ROM. Denies: Muscle spasm, Rash noted, Tenderness - Neurological Neurological exam: Alert, Normal gait, Oriented X3, Reflexes normal - Psychiatric Psychiatric exam: Normal affect, Normal mood - Skin Skin exam: Dry, Intact, Normal color, Warm Results - Labs Result Diagrams: 09/09/17 06:30 09/09/17 06:30 Labs Last 24 Hours: Laboratory Results - last 24 hr 09/08/17 09/08/17 09/08/17 11:58 11:58 11:58 WBC 11.8 RBC 4.83 Hgb 14.6 Hct 43.8 MCV 90.7 MCH 30.2 MCHC 33.3 RDW 14.3 Plt Count 391 MPV 10.8 H Neutrophils % 93.0 H Eosinophils % Not Reportable Basophils % Not Reportable Lymphocytes 4.0 L Monocytes 2.0 Platelet Estimate Normal RBC Morphology Normal Eosinophil Count 1.0 Sodium 141 Potassium 4.0 Chloride 96 L Carbon Dioxide 26.0 Anion Gap 19.0 H BUN 25 H Creatinine 1.2 Estimated GFR > 60 Random Glucose 164 H Calcium 9.1 Total Bilirubin 0.60 AST 22 ALT 11 Alkaline Phosphatase 91 Troponin T Total Protein 7.4 Albumin 4.6 Globulin 2.8 Albumin/Globulin Ratio 1.6 Urine Color Yellow Urine Appearance Clear Urine pH 7.0 Ur Specific [place] 1.020 Urine Protein Negative Urine Glucose (UA) 500 mg/dl H Urine Ketones Negative Urine Blood Negative Urine Nitrite Negative Urine Bilirubin Negative Urine Urobilinogen 0.2 Ur Leukocyte Esterase Negative 09/08/17 11:58 WBC RBC Hgb Hct MCV MCH MCHC RDW Plt Count MPV Neutrophils % Eosinophils % Basophils % Lymphocytes Monocytes Platelet Estimate RBC Morphology Eosinophil Count Sodium Potassium Chloride Carbon Dioxide Anion Gap BUN Creatinine Estimated GFR Random Glucose Calcium Total Bilirubin AST ALT Alkaline Phosphatase Troponin T < 0.010 Total Protein Albumin Globulin Albumin/Globulin Ratio Urine Color Urine Appearance Urine pH Ur Specific [place] Urine Protein Urine Glucose (UA) Urine Ketones Urine Blood Urine Nitrite Urine Bilirubin Urine Urobilinogen Ur Leukocyte Esterase VTE H&P Assessment - Risk for VTE Risk for VTE: Yes Risk Level: Moderate Risk Assessment Date: 09/08/17 Risk Assessment Time: 18:44 VTE Orders Placed or Will Be Placed: Yes Plan - Inpatient Certification Inpatient Certification: Admit to inpatient care: Based on my medical assessment, after consideration of patient's risk factors (age, co-morbidities and patient presenting symptoms and acuity), I expect that this patient will remain in the hospital greater than or equal to two midnights and that the services needed warrant inpatient care because: Patient Risk Factors: [age, co-morbidities] Estimated length of stay: [48-72 hours] The patient may reasonably be expected to be discharged or transferred to a hospital within 96 hours after admission to [facility]. Services needed: [IV abx, respiratory treatments] Post hospital care (if known): [Consider home care vs. long-term placement] I certify that my determination is in accordance with my understanding of Medicare requirements for reasonable and necessary inpatient services. 09/08/17 18:46 - Detailed Diagnosis and Plan (1) Right lower lobe pneumonia Current Visit: Yes Status: Acute Base Code: J18.1 - LOBAR PNEUMONIA, UNSPECIFIED ORGANISM Comment: 09/09/17: Chest xray on 09/08/17 demonstrates infiltrates in RLL. Pt. is receiving rocephin 1gm q12h and azithromycin 500mg PO daily. Labs and vital sign remain stable, pt. 95% on room air. (2) Weakness generalized Current Visit: No Status: Acute Base Code: R53.1 - WEAKNESS Comment: : Pt. was brought to ED on 09/08/17 by EMS for weakness. CXR demonstrated RLL infiltrates- treating with IV abx. Alzheimer's dementia since 2011. EKG NSR and nonspecific inferior changes. PT/OT eval ordered today to evaluation potential home care needs vs. consideration of long-term care facility. (3) At risk for deep venous thrombosis Current Visit: Yes Status: Acute Base Code: Z91.89 - [facility] PERSONAL RISK FACTORS, NOT ELSEWHERE CLASSIFIED Comment: 09/09/17: Lovenox 40mg SC for dvt prophylaxis. PT/OT eval today to evaluate level of activity/ambulation (4) Full code status Current Visit: Yes Status: Acute Base Code: Z78.9 - OTHER SPECIFIED HEALTH STATUS Comment: 09/09/17: Pt. is full code
[2017-09-08] MEDS: MEMANTINE HCL 10 MG TABLET PO SCH (21:35)
[2017-09-08] MEDS: ATORVASTATIN 20 MG TABLET PO SCH (21:35)
[2017-09-09] MEDS ORDERED: CEFTRIAXONE SODIUM 1 GM in 0.9 % SODIUM CHLORIDE 100ML 100 ML IVPB SCH (04:00)
[2017-09-09 06:38] LABS: BASO % 0.2 % (0-6); EOS % 0.2 % (0-6); GRAN % 73.1 % (47-80); HEMATOCRIT 36.1 % (42.0-52.0); HEMOGLOBIN 11.6 gm/dl (14.0-18.0); LYMPH % 14.6 % (16-45); MEAN CELL VOLUME 91.6 fl (81-97); MEAN CORPUSCULAR HEMOGLOBIN 29.4 pg (27-33); MEAN CORPUSCULAR HGB CONC 32.1 g/dl (32-36); MEAN PLATELET VOLUME 9.8 fl (7.4-10.4); MONO % 11.9 % (0-9); PLATELET COUNT 343 K/uL (130-400); RED BLOOD COUNT 3.94 M/uL (4.40-5.70); RED CELL DISTRIBUTION WIDTH 14.4 % (11.5-14.5); WHITE BLOOD COUNT W/O DIFF 10.4 K/uL (4.2-12.2)
[2017-09-09 07:04] LABS: BLOOD UREA NITROGEN 24 mg/dL (8-23); CREATININE 1.2 mg/dL (0.7-1.2); EST GLOMERULAR FILTRATION RATE > 60 mL/min; GLUCOSE,RANDOM 100 mg/dL (74-109)
--- NOTE | 2017-09-09 07:19 | RADIOLOGY REPORT ---
EXAM: CHEST, TWO VIEWS HISTORY: WEAKNESS. TECHNIQUE: Two views of the chest were obtained. Comparison: 11/05/15. FINDINGS: The cardiomediastinal silhouette is stable. Suggestion of mild streaky right basilar atelectasis or developing infiltrate. No pleural effusions. Degenerative changes thoracic spine. IMPRESSION: SUGGESTION OF MILD STREAKY MEDIAL BASILAR ATELECTASIS OR INFILTRATE ON THE RIGHT. JOB NUMBER: [id number] MTDD
[2017-09-09] MEDS: MONTELUKAST SODIUM 10MG TABLET PO SCH (09:57)
[2017-09-09] MEDS: ASPIRIN 81 MG CHEWABLE TABLET PO SCH (09:57)
[2017-09-09] MEDS: MEMANTINE HCL 10 MG TABLET PO SCH ×2 (09:57→22:43)
[2017-09-09] MEDS: LORATADINE 10 MG TABLET PO SCH (09:58)
[2017-09-09] MEDS: AMLODIPINE BESYLATE 5MG TAB PO SCH (09:58)
[2017-09-09] MEDS: AZITHROMYCIN 500 MG TABLET PO SCH (09:58)
[2017-09-09] MEDS: ENOXAPARIN 40 MG/0.4 ML SYR SC SCH (09:59)
[2017-09-09] MEDS ORDERED: AMLODIPINE BESYLATE 5MG TAB PO SCH (10:00)
[2017-09-09] MEDS: LISINOPRIL 5 MG TABLET PO SCH (10:06)
[2017-09-09] MEDS: RIVASTIGMINE 13.3 MG TOP SCH (10:13)
--- NOTE | 2017-09-09 11:32 | Rehab Evaluation ---
Patient Information - Patient Information Diagnosis: Pneumonia Ordered Treatment: PT Evaluate and Treat Status: Initial Evaluation Past Medical/Surgical Hx: PAST MEDICAL/SURGICAL HISTORY Past Surgical History cataracts PMH - Respiratory Hx Respiratory Disorders Yes Hx Asthma Yes PMH - Cardiovascular Hx Cardiovascular Disorders Yes Hx Hypertension Yes Comment: hypercholesteremia PMH - Neuro Hx Neurological Disorders Yes Hx Dementia Yes: Alzheimers PMH - GI Hx Gastrointestinal Disorders Yes Hx Gastroesophageal Reflux Yes PMH - Hx Genitourinary Disorders No PMH - Endocrine Hx Endocrine Disorders No PMH - Musculoskeletal Hx Musculoskeletal Disorders Yes Hx Arthritis Yes PMH - Psych Hx Psychiatric Problems No PMH - Hematology/Oncology Hx Hematology/Oncology No Disorders Premorbid Status: Detail (The patient lives alone in a one story home with a basement. Home Health Aides are present 6 days a week to assist the patient. The patient's home has 3 steps at one enterance with a railing. The patient's bathroom is equipped with a tub/shower combination. The patient was ambulatory without device prior to hospitalization. The patient was independent with dressing and ADL's. The home health aides assist the patient with household tasks.) Precautions: [place], Fall - Time With Patient Total Time Spent With Patient (Min): 30 Treatment Procedures: Detail (Initial Evaluation.) Subjective Information - Subjective Information Per Patient (The patient denied pain.) Objective Data - Mental Status Patient Orientation: Person (The patient knew his birthdate but did not know his age, current month or year or place. The patient exhibited impulsivity and decreased safety awareness.) - ROM Within normal limits (The patient's LE AROM was within functional limits.) - Strength/Tone Within normal limits (The patient's LE strength was generally 4+ to 5/5.) - Bed Mobility Independent (The patient was independent with supine to and from sit transfer.) - Transfers Independent (The patient was independent with sit to and from stand transfer.) - Balance Balance Sitting: Good Balance Standing: Fair (The patient scored 18/28 using the Tinetti Assessment Tool which is in th high risk for falling category.) - Gait Detail (The patient ambulated without device with CG of 1 and 1 to handle IV a distance of 85 feet x 1 . The patient's gait pattern was characterized by occasional stagger steps. The patient's Home Health aide verified that the patient's gait pattern was similiar as to what it was prior to hospitalization.) Therapy Assessment - Therapy Assessment Detail (The patient was independent with bed mobility, transfers and CG with ambulation. Supervision with all mobility is recommended due to the patient's cognitive status. The patient is also in the high risk for falling category as tested by the Tinetti Assesment Tool. Feel the patient may benefit from short term Home Health PT to improve balance and stability of gait.) Problem List - Problem List Physical Therapy Problem List: Detail (1) Unsteady gait pattern. 2) Decreased balance (in the high risk for falls category.) 3) Cognitive status) Goals - Goals Physical Therapy Goals: Improve the patient's balance to moderate risk for falling category and to increase stability of gait pattern. Prognosis - Prognosis Moderate Plan - Plan Physical Therapy Plan: PT 1 time a day M-F while an inpatient for balance exercises and gait training.
--- NOTE | 2017-09-09 13:04 | US VENOUS DOPPLER REPORT ---
EXAM: URGENT VENOUS DOPPLER ULTRASOUND RIGHT LOWER EXTREMITY HISTORY: RIGHT CALF PAIN. TECHNIQUE: Venous Doppler ultrasound of the right lower extremity was performed with color flow and spectral analysis. Compression and flow augmentation maneuvers were performed in the thigh and popliteal region as well. Comparison: None. FINDINGS: The venous Doppler ultrasound of the right lower extremity is negative. No DVT identified. Flow is seen throughout. Flow augmentation and compression was evident in the thigh and popliteal region as well. IMPRESSION: NEGATIVE VENOUS DOPPLER ULTRASOUND OF THE RIGHT LOWER EXTREMITY WITH NO EVIDENCE OF DVT IDENTIFIED FROM THE INGUINAL REGION DOWN THROUGH THE CALF. JOB NUMBER: [id number] [facility]
--- NOTE | 2017-09-09 13:22 | Rehab Evaluation ---
Patient Information - Patient Information Diagnosis: RLL Pneumonia Ordered Treatment: OT Evaluate and Treat Status: Initial Evaluation Surgery: No Past Medical/Surgical Hx: PAST MEDICAL/SURGICAL HISTORY Past Surgical History cataracts PMH - Respiratory Hx Respiratory Disorders Yes Hx Asthma Yes PMH - Cardiovascular Hx Cardiovascular Disorders Yes Hx Hypertension Yes Comment: hypercholesteremia PMH - Neuro Hx Neurological Disorders Yes Hx Dementia Yes: Alzheimers PMH - GI Hx Gastrointestinal Disorders Yes Hx Gastroesophageal Reflux Yes PMH - Hx Genitourinary Disorders No PMH - Endocrine Hx Endocrine Disorders No PMH - Musculoskeletal Hx Musculoskeletal Disorders Yes Hx Arthritis Yes PMH - Psych Hx Psychiatric Problems No PMH - Hematology/Oncology Hx Hematology/Oncology No Disorders Premorbid Status: Detail (The patient lives alone in a one story home with a basement. Home Health Aides are present 6 days a week to assist the patient. The patient's home has 3-4 steps at one entrance with a railing. The patient's bathroom is equipped with a tub/shower combination and he typically stands to shower. The patient was ambulatory without device prior to hospitalization. The patient was independent with all ADL's prior to admission. The home health aides assist the patient with household tasks and meal prep, he was able to use the microwave.) Precautions: [place], Fall - Time With Patient Total Time Spent With Patient (Min): 35 Treatment Procedures: Detail (OT eval low complexity) Subjective Information - Subjective Information Per Patient, Other (Per home health aideDidi.) Objective Data - Pain Pain Present: No - Mental Status Patient Orientation: Person (Pt oriented to self and birthday, not oriented to age, location, month, year or reason for hospitalization. Able to participate in evaluation and follow commands.) - Visual Perception Appears within normal limits for therapeutic activities (Pt has glasses but doesn't wear them.) - ROM Within normal limits (Francis UE AROM WNL) - Strength/Tone Within normal limits (Francis UE strength 4+/5) - Coordination Appears within normal limits for therapeutic activities - Bed Mobility Independent (Ind with supine to sit.) - Transfers Needs Assist (CG assist for sit to stand from EOB and toilet.) - Balance Balance Sitting: Good Balance Standing: Fair - Sensation Intact - Gait Detail (Pt ambulated in hallway with CG assist due to mild unsteadiness.) - ADL's/IADL's Detail (Pt able to complete toileting and oral hygiene with CG assist for mobility.) Therapy Assessment - Therapy Assessment Detail (Pt presents with mild unsteadiness with functional mobility as well as decreased cognition.) Problem List - Problem List Physical Therapy Problem List: Detail (1) Unsteady gait pattern. 2) Decreased balance (in the high risk for falls category.) 3) Cognitive status) Occupational Therapy Problem List: Detail (1. Impaired cognition/orientation. 2. Decreased balance needed for safe and Ind ADLs.) Goals - Goals Physical Therapy Goals: Improve the patient's balance to moderate risk for falling category and to increase stability of gait pattern. Occupational Therapy Goals: 1. Pt will be oriented x 3. 2. Pt will demonstrate safety and Ind with functional mobility needed for self cares. Prognosis - Prognosis Good Plan - Plan Physical Therapy Plan: PT 1 time a day M-F while an inpatient for balance exercises and gait training. Occupational Therapy Plan: OT 2-4 days per week to address safety, cognition, self cares and functional mobility.
--- NOTE | 2017-09-09 21:19 | Physician Progress Note ---
Subjective - Date Date of Physician Progress Note: 09/09/17 - Subjective Subjective Comment: Pt. is tolerating PO abx well, will continue to monitor vital signs and recheck cbc and cmp with morning labs. PT/OT eval completed and PT would be beneficial for balance exercises and gait training, OT for safety, cognition, self-care and functional mobility. Objective - Vital Signs Vital Signs: Vital Signs - Last 24 Hrs Temp Pulse Resp BP Pulse Ox 09/09/17 18:00 97.1 F L 67 18 184/91 96 09/09/17 14:00 97.0 F L 65 18 160/96 96 09/09/17 08:37 97.9 F 61 18 137/64 95 09/09/17 06:00 97.8 F 61 18 113/55 96 09/09/17 00:00 97.8 F 68 18 128/65 96 - General General Appearance: Alert, Oriented x3, Cooperative, No acute distress - Head Head exam: Normal inspection - Eye Eye exam: Normal appearance, PERRL Pupils: Normal accommodation - ENT ENT exam: Normal exam, Mucous membranes moist, Normal external ear exam, Normal orophraynx, TM's normal bilaterally Ear exam: Normal external inspection. negative: External canal tenderness Nasal Exam: Normal inspection. negative: Discharge, Sinus tenderness Mouth exam: Normal external inspection, Tongue normal Teeth exam: Normal inspection. negative: Dental caries Throat exam: Normal inspection. negative: Tonsillar erythema, Tonsillar exudate - Neck Neck exam: Normal inspection, Full ROM. negative: Tenderness - Respiratory Respiratory exam: Normal lung sounds bilaterally. negative: Respiratory distress - Cardiovascular Cardiovascular Exam: Regular rate, Normal rhythm, Normal heart sounds - GI/Abdominal GI/Abdominal exam: Soft, Normal bowel sounds. negative: Tenderness - Rectal Rectal exam: Deferred - exam: Deferred - Extremities Extremities exam: Normal inspection, Full ROM, Normal capillary refill. negative: Tenderness - Back Back exam: Reports: Normal inspection, Full ROM. Denies: Muscle spasm, Rash noted, Tenderness - Neurological Neurological exam: Alert, Normal gait, Oriented X3, Reflexes normal - Psychiatric Psychiatric exam: Normal affect, Normal mood - Skin Skin exam: Dry, Intact, Normal color, Warm Assessment and Plan - Assessment and Plan (1) Right lower lobe pneumonia Current Visit: Yes Status: Acute Base Code: J18.1 - LOBAR PNEUMONIA, UNSPECIFIED ORGANISM Comment: 09/09/17: Chest xray on 09/08/17 demonstrates infiltrates in RLL. Pt. is receiving rocephin 1gm q12h and azithromycin 500mg PO daily. Labs and vital sign remain stable, pt. 95% on room air. (2) Weakness generalized Current Visit: No Status: Acute Base Code: R53.1 - WEAKNESS Comment: : Pt. was brought to ED on 09/08/17 by EMS for weakness. CXR demonstrated RLL infiltrates- treating with IV abx. Alzheimer's dementia since 2011. EKG NSR and nonspecific inferior changes. PT/OT eval ordered today to evaluation potential home care needs vs. consideration of long-term care facility. (3) At risk for deep venous thrombosis Current Visit: Yes Status: Acute Base Code: Z91.89 - OT PERSONAL RISK FACTORS, NOT ELSEWHERE CLASSIFIED Comment: 09/09/17: Lovenox 40mg SC for dvt prophylaxis. PT/OT eval today to evaluate level of activity/ambulation (4) Full code status Current Visit: Yes Status: Acute Base Code: Z78.9 - OTHER SPECIFIED HEALTH STATUS Comment: 09/09/17: Pt. is full code Results - Labs Result Diagrams: 09/09/17 06:30 09/09/17 06:30 Labs Last 24 Hours: Laboratory Results - last 24 hr 09/09/17 09/09/17 09/09/17 06:30 06:30 06:30 WBC 10.4 RBC 3.94 L Hgb 11.6 L Hct 36.1 L MCV 91.6 MCH 29.4 MCHC 32.1 RDW 14.4 Plt Count 343 MPV 9.8 Gran % 73.1 Lymphocytes % 14.6 L Monocytes % 11.9 H Eosinophils % 0.2 Basophils % 0.2 Sodium 140 Potassium 4.1 Chloride 100 Carbon Dioxide 26.0 Anion Gap 14.0 BUN 24 H Creatinine 1.2 Estimated GFR > 60 Random Glucose 100 Hemoglobin A1c 5.40 Calcium 8.3 L Troponin T 09/09/17 10:15 WBC RBC Hgb Hct MCV MCH MCHC RDW Plt Count MPV Gran % Lymphocytes % Monocytes % Eosinophils % Basophils % Sodium Potassium Chloride Carbon Dioxide Anion Gap BUN Creatinine Estimated GFR Random Glucose Hemoglobin A1c Calcium Troponin T < 0.010 DVT/PE Assessment - Risk for VTE Risk for VTE: No Risk Level: Moderate Risk Assessment Date: 09/08/17 Risk Assessment Time: 18:44 VTE Orders Placed or Will Be Placed: Yes - Active Medicaitons Current Medications: Current Medications Acetaminophen (Tylenol 325mg) 650 mg PO Q6H PRN PRN Reason: PAIN/TEMP Amlodipine Besylate (Norvasc) 5 mg PO DAILY [facility] Last Admin: 09/09/17 09:58 Dose: 5 mg Aspirin (Aspirin Chewable) 81 mg PO DAILY [facility] Last Admin: 09/09/17 09:57 Dose: 81 mg Atorvastatin Calcium (Lipitor) 40 mg PO QHS [facility] Last Admin: 09/08/17 21:35 Dose: 40 mg Azithromycin (Zithromax) 500 mg PO DAILY [facility] Last Admin: 09/09/17 09:58 Dose: 500 mg Cefdinir (Cefdinir) 300 mg PO BID [facility] Stop: 09/12/17 22:01 Enoxaparin Sodium (Lovenox) 40 mg SC DAILY [facility] Last Admin: 09/09/17 09:59 Dose: 40 mg Sodium Chloride () 1,000 mls @ 50 mls/hr IV .Q20H PRN PRN Reason: LARGE VOLUME IV Lisinopril (Zestril) 2.5 mg PO DAILY [facility] Last Admin: 09/09/17 10:06 Dose: 2.5 mg Loratadine (Claritin) 10 mg PO DAILY [facility] Last Admin: 09/09/17 09:58 Dose: 10 mg Memantine (Namenda) 10 mg PO BID [facility] Last Admin: 09/09/17 09:57 Dose: 10 mg Montelukast Sodium (Singulair) 10 mg PO DAILY [facility] Last Admin: 09/09/17 09:57 Dose: 10 mg Non-Formulary Medication (Rivastigmine [Exelon]) 13.3 mg TOP DAILY [facility] Last Admin: 09/09/17 10:13 Dose: 13.3 mg Ondansetron HCl (Zofran Odt) 4 mg PO BID PRN PRN Reason: GI UPSET AMI Plan - Labs Result Diagrams: 09/09/17 06:30 09/09/17 06:30
[2017-09-09] MEDS: CEFDINIR 300 MG CAPSULE PO SCH (22:43)
[2017-09-09] MEDS: ATORVASTATIN 20 MG TABLET PO SCH (22:44)
[2017-09-10 06:50] LABS: BASO % 0.6 % (0-6); EOS % 1.8 % (0-6); GRAN % 51.3 % (47-80); HEMATOCRIT 38.1 % (42.0-52.0); HEMOGLOBIN 12.2 gm/dl (14.0-18.0); LYMPH % 35.7 % (16-45); MEAN CELL VOLUME 92.7 fl (81-97); MEAN PLATELET VOLUME 10.2 fl (7.4-10.4); MONO % 10.6 % (0-9); PLATELET COUNT 367 K/uL (130-400); RED BLOOD COUNT 4.11 M/uL (4.40-5.70); RED CELL DISTRIBUTION WIDTH 14.7 % (11.5-14.5); WHITE BLOOD COUNT W/O DIFF 8.3 K/uL (4.2-12.2)
[2017-09-10 06:51] LABS: MEAN CORPUSCULAR HEMOGLOBIN 29.6 pg (27-33)
[2017-09-10 06:54] LABS: ALB/GLOB RATIO 1.7 (1.1-1.8); ALBUMIN 3.5 g/dL (4.0-5.0); BILIRUBIN,TOTAL 0.6 mg/dL (0.2-1.0); CREATININE 1.5 mg/dL (0.7-1.2); TOTAL PROTEIN 5.6 g/dL (6.6-8.7)
--- NOTE | 2017-09-10 09:17 | Discharge Summary ---
Providers Discharge Summary Date: 09/11/17 Date of admission: 09/08/17 16:56 Expected Date of Discharge: 09/11/17 Attending physician: NATALIA GUARDADO Primary care physician: Nereyda Colon N.P. Consults: Consult Orders 09/08/17 17:16 Consult - Case Management Now Comment: Reason For Exam: The need for more advanced home care Physical Exam - Vital Signs Vital Signs: Vital Signs - Last 24 Hrs Temp Pulse Resp BP Pulse Ox 09/10/17 06:00 97.9 F 57 L 18 106/61 95 09/09/17 20:00 98.0 F 69 18 140/74 97 09/09/17 18:00 97.1 F L 67 18 184/91 96 09/09/17 14:00 97.0 F L 65 18 160/96 96 - General General Appearance: Alert, Oriented x3, Cooperative, No acute distress - Head Head exam: Normal inspection - Eye Eye exam: Normal appearance, PERRL Pupils: Normal accommodation - ENT ENT exam: Normal exam, Mucous membranes moist, Normal external ear exam, Normal orophraynx, TM's normal bilaterally Ear exam: Normal external inspection. negative: External canal tenderness Nasal Exam: Normal inspection. negative: Discharge, Sinus tenderness Mouth exam: Normal external inspection, Tongue normal Teeth exam: Normal inspection. negative: Dental caries Throat exam: Normal inspection. negative: Tonsillar erythema, Tonsillar exudate - Neck Neck exam: Normal inspection, Full ROM. negative: Tenderness - Respiratory Respiratory exam: Normal lung sounds bilaterally. negative: Accessory muscle use, Respiratory distress - Cardiovascular Cardiovascular Exam: Regular rate, Normal rhythm, Normal heart sounds - GI/Abdominal GI/Abdominal exam: Soft, Normal bowel sounds. negative: Tenderness - Rectal Rectal exam: Deferred - exam: Deferred - Extremities Extremities exam: Normal inspection, Full ROM, Normal capillary refill. negative: Tenderness - Back Back exam: Reports: Normal inspection, Full ROM. Denies: Muscle spasm, Rash noted, Tenderness - Neurological Neurological exam: Alert, Normal gait, Oriented X3, Reflexes normal - Psychiatric Psychiatric exam: Normal affect, Normal mood - Skin Skin exam: Dry, Intact, Normal color, Warm Hospitalization - Hospitalization Admission Diagnosis: RLL pneumonia - Problem List/Discharge Diagnosis (1) Right lower lobe pneumonia Current Visit: Yes Status: Acute Discharge Diagnosis: Pneumonia type: due to unspecified organism Qualified Code(s): J18.1 - Lobar pneumonia, unspecified organism Base Code: J18.1 - LOBAR PNEUMONIA, UNSPECIFIED ORGANISM Comment: 09/11/17: improving clinically. Chest xray on 09/08/17 demonstrates infiltrates in RLL. WBC count within normal. 97% on room air and afebrile. -plan to discharge home today with 8H of daily home health aid and home PT/OT -continue cefdinir 300mg po bid for 7 more days. -continue azithromycin 250mg po daily for 1 more day -Follow up with pcp in 7-10 days. Naomi [facility] care transition mgr, has set up appointment (2) Weakness generalized Current Visit: No Status: Acute Base Code: R53.1 - WEAKNESS Comment: : Improving. he has been up with minimal assistance. Pt. was brought to ED on 09/08/17 by EMS for acute on chronic weakness. Alzheimer's dementia since 2011 contributing. Likely pneumonia exacerbating chronic weakness. -SW consulted and discussed option of shelter placement with patient's daughter, but she is not ready to take that step. SW did make her aware of several options in the area. -SW has set up 8H of daily home health aid along with home PT/OT. -Patient has follow up with pcp next week (3) DVT prophylaxis Current Visit: Yes Status: Acute Base Code: [id number] - Comment: 09/11/17: Lovenox 40mg SC for dvt prophylaxis. (4) Full code status Current Visit: Yes Status: Acute Base Code: Z78.9 - OTHER SPECIFIED HEALTH STATUS Comment: 09/11/17: Pt. is full code - Hospitalization Course Disposition: Home Health Service Hospital Course: Mr. Arreaga is an 81 year-old male who presented to the ED on 09/08/17 by EMS with his daughter due to concern of worsening weakness. No fever, decreased appetite, nausea, vomiting, or cough. He was diagnosed with Alzheimer's in 2011. He does have a home health aid that comes in 5 days/ week and a weekly visit by a social service assistant that coordinates with pt's daughter ( she is his DPOA). His history included asthma, hypercholesteremia, GERD, and arthritis. In the ED, his BP was 160/92, HR 88, RR 18, 99% on room air, and T 97.1F. His labs were unremarkable, including normal troponin. His UA did show elevated glucose, likely secondary to dehydration, otherwise normal. Chest xray revealed right basilar atelectasis or developing infiltrate. He was admitted to inpatient for pneumonia and evaluation of weakness. IV rocephin 1gm q12h and azithromycin 500mg daily. 09/09/17: Pt. is resting comfortably in bed. He denies cough. He has been up to shower this morning with little assistance. His home health aid is at his bedside. Per home health aid- pt's level of activity often fluctuates from day to day, and she states that he has been slightly more confused being in a different environment than he is used to. Repeat labs this morning were relatively unchanged. His vital signs have remained stable. He did complain of right calf pain last night and venous doppler was completed this morning- results are pending. PT/OT eval ordered today. Will change abx to PO. Case management is working with pt's home health service ([facility])- pt's daughter wants home health 7 days/week for 8 hours per day- she states she is concerned he is not eating and drinking enough when no home health. 09/11/17- Patient doing very well today. Has been up to the bathroom without assistance. Working with PT/OT while here. He denies any cough, shortness of breath or difficulty breathing. He still feels a little more fatigued than usual but better than yesterday. Appetite is good, eating at least 75% of his meals. Home Health aid that has been with him for 3 months states he seems to be closer to baseline today. Procedures: Imaging and X-Rays 09/08/17 12:58 CHEST 2 VIEWS [RAD] Stat 09/09/17 08:00 VENOUS DOPPLER LOWER EXT RT [US] Urgent Cardiology Procedures 09/08/17 12:58 EKG NOW Abnormal Labs: Abnormal Lab Results 09/08/17 09/08/17 09/08/17 Range/Units 11:58 11:58 11:58 RBC (4.40-5.70) M/uL Hgb (14.0-18.0) gm/dl Hct (42.0-52.0) % RDW (11.5-14.5) % MPV 10.8 H (7.4-10.4) fl Neutrophils % 93.0 H (47-80) % Lymphocytes % (16-45) % Monocytes % (0-9) % Lymphocytes 4.0 L (16-45) % Chloride 96 L (98-107) mmol/L Anion Gap 19.0 H (7-16) BUN 25 H (8-23) mg/dL Creatinine (0.7-1.2) mg/dL Random Glucose 164 H (74-109) mg/dL Calcium (8.8-10.2) mg/dL Total Protein (6.6-8.7) g/dL Albumin (4.0-5.0) g/dL Urine Glucose (UA) 500 mg/dl H (NEGATIVE) 09/09/17 09/09/17 09/10/17 Range/Units 06:30 06:30 06:18 RBC 3.94 L 4.11 L (4.40-5.70) M/uL Hgb 11.6 L 12.2 L (14.0-18.0) gm/dl Hct 36.1 L 38.1 L (42.0-52.0) % RDW 14.7 H (11.5-14.5) % MPV (7.4-10.4) fl Neutrophils % (47-80) % Lymphocytes % 14.6 L (16-45) % Monocytes % 11.9 H 10.6 H (0-9) % Lymphocytes (16-45) % Chloride (98-107) mmol/L Anion Gap (7-16) BUN 24 H (8-23) mg/dL Creatinine (0.7-1.2) mg/dL Random Glucose (74-109) mg/dL Calcium 8.3 L (8.8-10.2) mg/dL Total Protein (6.6-8.7) g/dL Albumin (4.0-5.0) g/dL Urine Glucose (UA) (NEGATIVE) 09/10/17 Range/Units 06:18 RBC (4.40-5.70) M/uL Hgb (14.0-18.0) gm/dl Hct (42.0-52.0) % RDW (11.5-14.5) % MPV (7.4-10.4) fl Neutrophils % (47-80) % Lymphocytes % (16-45) % Monocytes % (0-9) % Lymphocytes (16-45) % Chloride (98-107) mmol/L Anion Gap (7-16) BUN 24 H (8-23) mg/dL Creatinine 1.5 H (0.7-1.2) mg/dL Random Glucose (74-109) mg/dL Calcium 8.3 L (8.8-10.2) mg/dL Total Protein 5.6 L (6.6-8.7) g/dL Albumin 3.5 L (4.0-5.0) g/dL Urine Glucose (UA) (NEGATIVE) Condition at Discharge: (2) Stable Discharge Medications - Discharge Medications Prescriptions: Azithromycin [Zithromax] 250 mg PO DAILY #1 tab Cefdinir 300 mg PO BID #14 capsule Home Medications: Ambulatory Orders Aspirin 81 mg PO QD tab.chew 09/12/16 [Last Taken 1 Day Ago ~09/07/17] Azithromycin [Zithromax] 250 mg PO DAILY #1 tab 09/11/17 [Last Taken Unknown] Cefdinir 300 mg PO BID #14 capsule 09/11/17 [Last Taken Unknown] Discharge Plan - Discharge Instructions Activity at Discharge: As Per Physical Therapy Diet at Discharge: Regular Diet Additional Instructions: Follow up with Nereyda Colon next week as scheduled at [facility] family practice. Use entrance C Continue cefdinir 300mg by mouth twice daily for 7 more days. His next dose will be due this evening Continue azithromycin 250mg by mouth once daily. His next dose will be due tomorrow morning. Please call with any questions or concerns Return to ED for any new or worsening symptoms Quality Measures - Quality Measures Quality Measures: Advance Directives, Documentation of Current Medications in Medical Record, Elder Maltreatment Screen and Follow-Up Plan, Screening for High Blood Pressure and F/U Documented - Current Medications Quality Measure: Measure #130: Documentation of Current Medications Documentation of Current Medications: <Current Medications Documented/Reviewed> [G8427] - Blood Pressure Screening Quality Measure: Screening for High Blood Pressure and Follow-Up Documented Does Patient Have Any of the Following: Active Dx of HTN Blood Pressure Classification: Hypertensive Reading Systolic Measurement: 160 Diastolic Measurement: 92 Screening for High Blood Pressure: Patient Exclusion, Hx of HTN [G9744] - Advance Directives Quality Measure: Measure #47: Care Plan Advance Directives Established: Yes Advance Directives Information Provided To Patient: Declined Advance Directives on File: No Living Will: Yes Power of Head Esthetician: Yes Power of Head Esthetician Name: BRI VELASCO Advance Care Planning: <Care Plan/Decision Maker Documented; Discussed & Documented> [[id number]] - Elder Abuse Suspicion Index Screening: Elder Abuse Suspicion Index Screening Rely on people for bathing, dressing, shopping, banking, etc: Yes Prevented from getting food, clothes, medication, etc: No Made to feel shamed or threatened by someone: No Forced to sign papers or use money against will: No Feel afraid, touched in ways not wanted or hurt physically: No Poor eye contact, withdrawn, malnourished, cuts or bruises: No Screening Result: Negative result EASI Reference Information: Jacqueline PELLETIER, Tex C, Massimo D, Latisha Cook.Development and validation of a tool to assist physicians identification of elder abuse: The Elder Abuse Suspicion Index (EASI ). Journal of Elder Abuse and Neglect, 2008; 20 (3): 276-300. - Elder Maltreatment Screen Quality Measures: Elder Maltreatment Screen and Follow-Up Plan Elder Maltreatment Screen: <Negative, No Follow-Up Plan Required> [L2241]
[2017-09-10] MEDS: LISINOPRIL 5 MG TABLET PO SCH (11:06)
[2017-09-10] MEDS: MONTELUKAST SODIUM 10MG TABLET PO SCH (11:06)
[2017-09-10] MEDS: AZITHROMYCIN 500 MG TABLET PO SCH (11:06)
[2017-09-10] MEDS: ASPIRIN 81 MG CHEWABLE TABLET PO SCH (11:06)
[2017-09-10] MEDS: CEFDINIR 300 MG CAPSULE PO SCH ×2 (11:06→21:51)
[2017-09-10] MEDS: LORATADINE 10 MG TABLET PO SCH (11:07)
[2017-09-10] MEDS: AMLODIPINE BESYLATE 5MG TAB PO SCH (11:07)
[2017-09-10] MEDS: MEMANTINE HCL 10 MG TABLET PO SCH ×2 (11:07→21:52)
[2017-09-10] MEDS: ENOXAPARIN 40 MG/0.4 ML SYR SC SCH (11:07)
--- NOTE | 2017-09-10 11:37 | Physician Progress Note ---
Subjective - Date Date of Physician Progress Note: 09/10/17 - Subjective Subjective Comment: 09/10/17- Patient sitting up in bed eating lunch at time of exam. He is oriented to person and is aware that he is in the hospital. He denies any shortness of breath, cough, or difficulty breathing. he does admit to feeling exhausted, very tired and weaker than usual. He lives alone but has health aid 4 hrs a day. He is usually alone at night and is able to take care of himself during that time. He didn't think he would be able to get up and use the restroom by himself at this time. Objective - Vital Signs Vital Signs: Vital Signs - Last 24 Hrs Temp Pulse Pulse Resp BP Pulse Ox 09/10/17 10:52 50 L 16 09/10/17 10:00 97.9 F 48 L 16 127/63 97 09/10/17 06:00 97.9 F 57 L 18 106/61 95 09/09/17 20:00 98.0 F 69 18 140/74 97 09/09/17 18:00 97.1 F L 67 18 184/91 96 09/09/17 14:00 97.0 F L 65 18 160/96 96 - General General Appearance: Alert, Cooperative, No acute distress Limitations: Other (oriented to person and place) - Head Head exam: Normal inspection - Eye Eye exam: Normal appearance, PERRL Pupils: Normal accommodation - ENT ENT exam: Normal exam, Mucous membranes moist, Normal external ear exam, Normal orophraynx, TM's normal bilaterally Ear exam: Normal external inspection. negative: External canal tenderness Nasal Exam: Normal inspection. negative: Discharge, Sinus tenderness Mouth exam: Normal external inspection, Tongue normal Teeth exam: Normal inspection. negative: Dental caries Throat exam: Normal inspection. negative: Tonsillar erythema, Tonsillar exudate - Neck Neck exam: Normal inspection, Full ROM. negative: Tenderness - Respiratory Respiratory exam: Rales (bilateral bases). negative: Respiratory distress - Cardiovascular Cardiovascular Exam: Regular rate, Normal rhythm, Normal heart sounds - GI/Abdominal GI/Abdominal exam: Soft, Normal bowel sounds. negative: Tenderness - Rectal Rectal exam: Deferred - exam: Deferred - Extremities Extremities exam: Normal inspection, Full ROM, Normal capillary refill. negative: Tenderness - Back Back exam: Reports: Normal inspection, Full ROM. Denies: Muscle spasm, Rash noted, Tenderness - Neurological Neurological exam: Alert, Normal gait, Oriented X3, Reflexes normal - Psychiatric Psychiatric exam: Normal affect, Normal mood - Skin Skin exam: Dry, Intact, Normal color, Warm Assessment and Plan - Assessment and Plan (1) Weakness generalized Current Visit: No Status: Acute Base Code: R53.1 - WEAKNESS Comment: : Pt. was brought to ED on 09/08/17 by EMS for acute on chronic weakness. Alzheimer's dementia since 2011 contributing. Likely pneumonia exacerbating chronic weakness. -SW consulted. Working on setting up home health aid from 4H to 8H daily and ading home PT/OT. Probably won't be able to get either of those secured before tomorrow. Do not feel he is safe to discharge home tonight without any assistance so will plan to discharge tomorrow once safe discharge conditions can be arranged. -PT/Ot to continue working with patient while admitted -SW discussed option of halfway placement with patient's daughter, but she is not ready to take that step. SW did make her aware of several options in the area. (2) Right lower lobe pneumonia Current Visit: Yes Status: Acute Qualifiers: Pneumonia type: due to unspecified organism Qualified Code(s): J18.1 - Lobar pneumonia, unspecified organism Base Code: J18.1 - LOBAR PNEUMONIA, UNSPECIFIED ORGANISM Comment: 09/10/17: Chest xray on 09/08/17 demonstrates infiltrates in RLL. WBC count within normal. 97% on room air and afebrile. -transitioned to oral cefdinir 300mg po bid and azithromycin 500mg po daily -repeat labs qam -vitals q8H (3) DVT prophylaxis Current Visit: Yes Status: Acute Base Code: [id number] - Comment: 09/10/17: Lovenox 40mg SC for dvt prophylaxis. (4) Full code status Current Visit: Yes Status: Acute Base Code: Z78.9 - OTHER SPECIFIED HEALTH STATUS Comment: 09/10/17: Pt. is full code Results - Labs Result Diagrams: 09/10/17 06:18 09/10/17 06:18 Labs Last 24 Hours: Laboratory Results - last 24 hr 09/10/17 09/10/17 06:18 06:18 WBC 8.3 RBC 4.11 L Hgb 12.2 L Hct 38.1 L MCV 92.7 MCH 29.6 MCHC 32.0 RDW 14.7 H Plt Count 367 MPV 10.2 Gran % 51.3 Lymphocytes % 35.7 Monocytes % 10.6 H Eosinophils % 1.8 Basophils % 0.6 Sodium 143 Potassium 4.1 Chloride 103 Carbon Dioxide 27.0 Anion Gap 13.0 BUN 24 H Creatinine 1.5 H Estimated GFR 48 Random Glucose 88 Calcium 8.3 L Total Bilirubin 0.60 AST 24 ALT 11 Alkaline Phosphatase 68 Total Protein 5.6 L Albumin 3.5 L Globulin 2.1 Albumin/Globulin Ratio 1.7 DVT/PE Assessment - Risk for VTE Risk for VTE: No Risk Level: Moderate Risk Assessment Date: 09/08/17 Risk Assessment Time: 18:44 VTE Orders Placed or Will Be Placed: Yes - Active Medicaitons Current Medications: Current Medications Acetaminophen (Tylenol 325mg) 650 mg PO Q6H PRN PRN Reason: PAIN/TEMP Amlodipine Besylate (Norvasc) 5 mg PO DAILY [facility] Last Admin: 09/10/17 11:07 Dose: 5 mg Aspirin (Aspirin Chewable) 81 mg PO DAILY [facility] Last Admin: 09/10/17 11:06 Dose: 81 mg Atorvastatin Calcium (Lipitor) 40 mg PO QHS [facility] Last Admin: 09/09/17 22:44 Dose: 40 mg Azithromycin (Zithromax) 500 mg PO DAILY [facility] Last Admin: 09/10/17 11:06 Dose: 500 mg Cefdinir (Cefdinir) 300 mg PO BID [facility] Stop: 09/12/17 22:01 Last Admin: 09/10/17 11:06 Dose: 300 mg Enoxaparin Sodium (Lovenox) 40 mg SC DAILY [facility] Last Admin: 09/10/17 11:07 Dose: 40 mg Sodium Chloride () 1,000 mls @ 50 mls/hr IV .Q20H PRN PRN Reason: LARGE VOLUME IV Lisinopril (Zestril) 2.5 mg PO DAILY [facility] Last Admin: 09/10/17 11:06 Dose: 2.5 mg Loratadine (Claritin) 10 mg PO DAILY [facility] Last Admin: 09/10/17 11:07 Dose: 10 mg Memantine (Namenda) 10 mg PO BID [facility] Last Admin: 09/10/17 11:07 Dose: 10 mg Montelukast Sodium (Singulair) 10 mg PO DAILY [facility] Last Admin: 09/10/17 11:06 Dose: 10 mg Non-Formulary Medication (Rivastigmine [Exelon]) 13.3 mg TOP DAILY [facility] Last Admin: 09/09/17 10:13 Dose: 13.3 mg Ondansetron HCl (Zofran Odt) 4 mg PO BID PRN PRN Reason: GI UPSET AMI Plan - Labs Result Diagrams: 09/10/17 06:18 09/10/17 06:18
[2017-09-10] MEDS: RIVASTIGMINE 13.3 MG TOP SCH (12:07)
--- NOTE | 2017-09-10 15:30 | Physical Therapy Tx Note ---
Physical Therapy Tx Note - Treatment Note Tolerated: Good Total Time Spent With Patient: 20 Physical Therapy Tx Note: Detail (The patient was sleeping when PT arrived. The patient was easily woken. The patient followed simple commands consistently. The patient was oriented to time and place. The patient acheived sit to stand with CG of 1 due to unsteadiness. The patient ambulated with hand hold of one and CG a distance of 52 feet x 1, occasional stagger step was noted. The patient completed the following balance exercises: standing with wide and narrow base with perturbations, reaching for objects, walking forwards and sideways. The patient exhibited shortness of breath with exercises. The patient returned to bed, with bed alarm activated and call light was within reach.) Physical Therapy Problem List: Detail (1) Unsteady gait pattern. 2) Decreased balance (in the high risk for falls category.) 3) Cognitive status) Physical Therapy Goals: Improve the patient's balance to moderate risk for falling category and to increase stability of gait pattern. Physical Therapy Plan: PT 1 time a day M-F while an inpatient for balance exercises and gait training.
[2017-09-10] MEDS: ATORVASTATIN 20 MG TABLET PO SCH (21:51)
[2017-09-10] MEDS ORDERED: CALCIUM CARBONATE 500 MG TAB.CHEW PO PRN (22:27)
[2017-09-11] MEDS: ASPIRIN 81 MG CHEWABLE TABLET PO SCH (09:07)
[2017-09-11] MEDS: CEFDINIR 300 MG CAPSULE PO SCH (09:07)
[2017-09-11] MEDS: AMLODIPINE BESYLATE 5MG TAB PO SCH (09:08)
[2017-09-11] MEDS: LORATADINE 10 MG TABLET PO SCH (09:08)
[2017-09-11] MEDS: MEMANTINE HCL 10 MG TABLET PO SCH (09:08)
[2017-09-11] MEDS: MONTELUKAST SODIUM 10MG TABLET PO SCH (09:08)
[2017-09-11] MEDS: ENOXAPARIN 40 MG/0.4 ML SYR SC SCH (09:08)
[2017-09-11] MEDS: LISINOPRIL 5 MG TABLET PO SCH (09:09)
[2017-09-11] MEDS: AZITHROMYCIN 500 MG TABLET PO SCH (09:12)
[2017-09-11] MEDS ORDERED: AZITHROMYCIN 250 MG TABLET PO SCH (10:00)
[2017-09-11] MEDS: RIVASTIGMINE 13.3 MG TOP SCH (11:30)
== END 2017-09-11 13:45 | disposition home health service (06) ==
LOC: ER 12:11 → MEDSURG 16:56
PROVIDERS: ADMIT Internal Medicine; ATTEND Internal Medicine
DX: E86.0 Dehydration (principal); J18.1 Lobar pneumonia, unspecified organism; G30.8 Other Alzheimer's disease; F02.80 Dementia in other diseases classified elsewhere, unspecified severity, without behavioral disturbance, psychotic disturbance, mood disturbance, and anxiety; I10 Essential (primary) hypertension; E78.00 Pure hypercholesterolemia, unspecified; J45.909 Unspecified asthma, uncomplicated; K21.9 Gastro-esophageal reflux disease without esophagitis; M19.90 Unspecified osteoarthritis, unspecified site
CPT/HCPCS: 71046; 80048; 80053; 81003; 83036; 84484; 85025; 85027; 93005; 93010; 96365; 97530; 99223; 99233; 99239; 99285; J1650

== ENCOUNTER 2018-05-06 09:28 | Emergency (ER) | payer MEDICARE, BC ==
[2018-05-06 10:35] LABS: BASO % 0.4 % (0-6); EOS % 1.1 % (0-6); GRAN % 73.9 % (47-80); HEMATOCRIT 37.9 % (42.0-52.0); HEMOGLOBIN 11.7 gm/dl (14.0-18.0); LYMPH % 15.1 % (16-45); MEAN CELL VOLUME 83.7 fl (81-97); MEAN CORPUSCULAR HEMOGLOBIN 25.8 pg (27-33); MEAN CORPUSCULAR HGB CONC 30.9 g/dl (32-36); MEAN PLATELET VOLUME 9.7 fl (7.4-10.4); MONO % 9.5 % (0-9); PLATELET COUNT 414 K/uL (130-400); RED BLOOD COUNT 4.53 M/uL (4.40-5.70); WHITE BLOOD COUNT W/O DIFF 9.8 K/uL (4.2-12.2)
[2018-05-06 10:37] LABS: URINE BILIRUBIN NEGATIVE (NEGATIVE); URINE BLOOD TRACE-I (NEGATIVE); URINE COLOR YELLOW; URINE GLUCOSE (UA) NEGATIVE (NEGATIVE); URINE KETONE TRACE (NEGATIVE); URINE LEUKOCYTE ESTERASE MODERATE (NEGATIVE); URINE NITRITE NEGATIVE (NEGATIVE); URINE PROTEIN NEGATIVE (NEGATIVE); URINE UROBILINOGEN 0.2 E.U./dL (0.20 - 1.00)
[2018-05-06 10:42] LABS: RED CELL DISTRIBUTION WIDTH 24.5 % (11.5-14.5)
[2018-05-06 10:46] LABS: BILIRUBIN,TOTAL 0.3 mg/dL (0.2-1.0); CREATININE 1.4 mg/dL (0.7-1.2); URINE APPEARANCE SL CLOUDY; URINE BACTERIA 2+; URINE EPITHELIAL CELLS 0 - 2 (FEW); URINE RBC 0 - 2 (NONE SEEN); URINE WBC >50 (0-2/hpf)
[2018-05-06 10:47] LABS: TOTAL PROTEIN 6.7 g/dL (6.6-8.7)
[2018-05-06 10:52] LABS: ALB/GLOB RATIO 1.2 (1.1-1.8); ALBUMIN 3.7 g/dL (4.0-5.0)
--- NOTE | 2018-05-06 10:58 | Emergency Department Record ---
History of Present Illness - General Chief Complaint: Fall Injury Stated Complaint: FALL Time Seen by Provider: 05/06/18 09:43 Source: Patient, Family, EMS Mode of Arrival: EMS Limitations: Altered mental status - History of Present Illness Initial Comments: pt lives alone but has day caregiver. pt was found on floor this am with furniture turned over and the house in disarray. there also was blood around the house from a skin tear. pt has dementia and was unable to give hx. pt denies pain. pt has been increasingly confused the last 2 months MD Complaint: Fall -: Unknown When Fall Occurred: Unsure Fall Witnessed: No Place Fall Occurred: Home Loss of Consciousness: Unsure Prolonged Down Time?: Yes, Unclear Location - Extremities: Right: Elbow - [place] Coma Scale Eye Response: (4) Open spontaneously Motor Response: (6) Obeys commands Verbal Response: (5) Oriented [place] Total: 15 - Related Data Home Medications Medication Instructions Recorded Confirmed Last Taken Acetaminophen [Tylenol Extra 1,000 mg PO DAILY 05/06/18 05/06/18 Unknown Strength] Cetirizine HCl [24Hour Allergy] 10 mg PO DAILY 05/06/18 05/06/18 Unknown Ferrous Sulfate 325 mg PO DAILY 05/06/18 05/06/18 Unknown Multivitamin [Daily Multiple 1 each PO DAILY 05/06/18 05/06/18 Unknown Vitamin] Allergies Allergy/AdvReac Type Severity Reaction Status Date / Time shellfish derived Allergy Unknown ANAPHYLAXIS Unverified 09/18/17 12:04 [SHELLFISH DERIVED] Latex Allergy: Allergy Unknown RASH Uncoded 09/08/17 12:27 Travel Screening - Travel/Exposure Within Last 30 Days Have you traveled within the last 30 days?: No Review of Systems ROS unobtainable: Due to mental status Reviewed: No additional complaints except as noted below Constitutional: Reports: As per HPI. Denies: Chills, Fever, Malaise, Night sweats, Weakness, Weight change Eyes: Reports: As per HPI. Denies: Eye discharge, Eye pain, Photophobia, Vision change ENT: Reports: As per HPI. Denies: Congestion, Dental pain, Ear pain, Epistaxis , Hearing loss, Throat pain Respiratory: Reports: As per HPI. Denies: Cough, Dyspnea, Hemoptysis, Stridor, Wheezes Cardiovascular: Reports: As per HPI. Denies: Arrhythmia, Chest pain, Dyspnea on exertion, Edema, Murmurs, Orthopnea, Palpitations, Paroxysmal nocturnal dyspnea, Rheumatic Fever, Syncope Endocrine: Reports: As per HPI. Denies: Fatigue, Heat or cold intolerance, Polydipsia, Polyuria Gastrointestinal: Reports: As per HPI. Denies: Abdominal pain, Constipation, Diarrhea, Hematemesis, Hematochezia, Melena, Nausea, Vomiting Genitourinary: Reports: As per HPI. Denies: Dysuria, Frequency, Hematuria, Incontinence, Retention, Testicular pain, Testicular mass, Urgency Musculoskeletal: Reports: As per HPI. Denies: Arthralgia, Back pain, Gout, Joint swelling, Myalgia, Neck pain Skin: Reports: As per HPI. Denies: Bruising, Change in color, Change in hair/ nails, Lesions, Pruritus, Rash Neurological: Reports: As per HPI. Denies: Abnormal gait, Confusion, Headache, Numbness, Paresthesias, Seizure, Tingling, Tremors, Vertigo, Weakness Psychiatric: Reports: As per HPI. Denies: Anxiety, Auditory hallucinations, Depression, Homicidal thoughts, Suicidal thoughts, Visual hallucinations Hematological/Lymphatic: Reports: As per HPI. Denies: Anemia, Blood Clots, Easy bleeding, Easy bruising, Swollen glands Past Medical History - SOCIAL HISTORY Smoking Status: Never smoker - RESPIRATORY Hx Respiratory Disorders: Yes Hx Asthma: Yes - CARDIOVASCULAR Hx Cardio Disorders: Yes Hx Hypertension: Yes Comment:: hypercholesteremia - NEURO Hx Neuro Disorders: Yes Hx Dementia: Yes (Alzheimers) - GI Hx GI Disorders: Yes Hx Reflux: Yes - Hx Genitourinary Disorders: No - ENDOCRINE Hx Endocrine Disorders: No - MUSCULOSKELETAL Hx Musculoskeletal Disorders: Yes Hx Arthritis: Yes - PSYCH Hx Psych Problems: No - HEMATOLOGY/ONCOLOGY Hx Hematology/Oncology Disorders: No Family Medical History Any Significant Family History?: No Family Hx Comment (NOT TO BE USED IN PLACE OF ITEMS BELOW): unknown at this time Physical Exam - General General Appearance: Alert, Cooperative, No acute distress - Head Head exam: Normal inspection - Eye Eye exam: Normal appearance, PERRL, EOMI Pupils: Normal accommodation - ENT ENT exam: Normal exam, Mucous membranes moist, Normal external ear exam, Normal orophraynx Ear exam: Normal external inspection. negative: External canal tenderness Nasal Exam: Normal inspection. negative: Discharge, Sinus tenderness Mouth exam: Normal external inspection, Tongue normal Teeth exam: Normal inspection. negative: Dental caries Throat exam: Normal inspection. negative: Tonsillar erythema, Tonsillar exudate - Neck Neck exam: Normal inspection, Full ROM. negative: Tenderness - Respiratory Respiratory exam: Normal lung sounds bilaterally. negative: Respiratory distress - Cardiovascular Cardiovascular Exam: Regular rate, Normal rhythm, Normal heart sounds - GI/Abdominal GI/Abdominal exam: Soft, Normal bowel sounds. negative: Tenderness - Rectal Rectal exam: Deferred - exam: Deferred - Extremities Extremities exam: Normal inspection, Full ROM, Normal capillary refill. negative: Tenderness - Back Back exam: Reports: Normal inspection, Full ROM. Denies: Muscle spasm, Rash noted, Tenderness - Neurological Neurological exam: Alert, CN II-XII intact, Normal gait - Psychiatric Psychiatric exam: Normal affect, Normal mood - Skin Skin exam: Dry, Intact, Normal color, Warm, Other (skin tear) Distribution of rash: RUE Course Vital Signs 05/06/18 09:34 Temperature 97.1 F L Pulse Rate 54 L Respiratory 16 Rate Blood Pressure 152/70 Pulse Ox 99 - Reevaluation(s) Reevaluation #1: 05/06/18 11:39 ct shows subdural acute on chronic w 7.8mm midline shift Medical Decision Making - Lab Data Result diagrams: 05/06/18 10:20 05/06/18 10:20 Lab Results 05/06/18 05/06/18 Range/Units 10:20 10:20 WBC 9.8 (4.2-12.2) K/uL RBC 4.53 (4.40-5.70) M/uL Hgb 11.7 L (14.0-18.0) gm/dl Hct 37.9 L (42.0-52.0) % MCV 83.7 (81-97) fl MCH 25.8 L (27-33) pg MCHC 30.9 L (32-36) g/dl RDW 24.5 H (11.5-14.5) % Plt Count 414 H (130-400) K/uL MPV 9.7 (7.4-10.4) fl Gran % 73.9 (47-80) % Lymphocytes % 15.1 L (16-45) % Monocytes % 9.5 H (0-9) % Eosinophils % 1.1 (0-6) % Basophils % 0.4 (0-6) % Urine Color Yellow Urine Appearance Sl cloudy Urine pH 6.0 (5.0-8.0) Ur Specific [place] 1.020 (1.002-1.030) Urine Protein Negative (NEGATIVE) Urine Glucose (UA) Negative (NEGATIVE) Urine Ketones Trace H (NEGATIVE) Urine Blood Trace-i (NEGATIVE) Urine Nitrite Negative (NEGATIVE) Urine Bilirubin Negative (NEGATIVE) Urine Urobilinogen 0.2 (0.20 - 1.00) E.U./dL Ur Leukocyte Esterase Moderate H (NEGATIVE) Urine RBC 0 - 2 (NONE SEEN) Urine WBC >50 (0-2/hpf) Ur Epithelial Cells 0 - 2 (FEW) Urine Bacteria 2+ Disposition Disposition: Transfer Clinical Impression: Subdural hematoma UTI (urinary tract infection) Qualifiers: Urinary tract infection type: acute cystitis Hematuria presence: without hematuria Qualified Code(s): N30.00 - Acute cystitis without hematuria Disposition: Acute Care Hospital Transfer Transfer To: [facility] Reason For Transfer: needs neurosurgery Accepting Physician: najali ruiz cassel Time Discussed w/Accepting Physician: 11:50 Forms: Patient Portal Access Quality - Quality Measures Quality Measures: Blunt Head Trauma (>2yr) - [place] Coma Scale [place] Coma Scale: [place] Coma Scale Eye Response: (4) Open spontaneously Motor Response: (6) Obeys commands Verbal Response: (4) Confused conversation [place] Total: 14 - Blunt Head Trauma - Adult Quality Measure: Measure #415: Utilization of CT for Minor Blunt Head Trauma Was CT ordered: Yes Does Patient Have Any of the Following: No Exclusions Patient Presented Within 24 Hours of Injury: Yes [place] Score: [address] for Minor Blunt Head Trauma: Not Eligible For Measure Additional Inclusion Criteria: More than 24hrs (OR) GCS not 15 (OR) CT not ordered. Indications For CT: Age 65 Years and Older Not Eligible Reason: GCS Score Less Than 15 - Blood Pressure Screening Does Patient Have Any of the Following: No, Active Dx of HTN Blood Pressure Classification: Hypertensive Reading Systolic Measurement: 152 Diastolic Measurement: 70 Screening for High Blood Pressure: Patient Exclusion, Hx of HTN [[id number]]
[2018-05-06] MEDS ORDERED: CIPROFLOXACIN LACTATE/D5W 400 MG/200 ML BAG IVPB ONE (11:04)
[2018-05-06] MEDS ORDERED: 0.9 % SODIUM CHLORIDE 1,000 ML BAG IV ONE (11:05)
--- NOTE | 2018-05-07 08:33 | CT SCAN REPORT ---
EXAM: CT OF THE BRAIN WITHOUT CONTRAST HISTORY: FOUND UNRESPONSIVE. TECHNIQUE: Sequential axial images were obtained from the foramen magnum to the vertex without contrast administration. Comparison: 08/12/17. FINDINGS: There is a mixed density subdural hematoma measuring 2.3 cm in maximal dimension. There is effacement upon the right lateral ventricle with a right to left midline shift of 7.8 mm. There is a remote area of ischemia in the left occipital region. The orbits, paranasal sinuses, and mastoid air cells are normal. IMPRESSION: MIXED DENSITY RIGHT SUBDURAL HEMATOMA MEASURING 2.3 CM IN THICKNESS. THERE IS IMPRESSION UPON THE RIGHT LATERAL VENTRICLE WITH RIGHT TO LEFT MIDLINE SHIFT OF 7.8 MM. NO DEPRESSED SKULL FRACTURE. JOB NUMBER: [id number] [facility]
--- NOTE | 2018-05-07 08:35 | CT SCAN REPORT ---
EXAM: CT OF THE CERVICAL SPINE HISTORY: FOUND UNRESPONSIVE. TECHNIQUE: Sequential axial images were obtained through the cervical spine without intravenous contrast administration. FINDINGS: There is normal vertebral body height and alignment. No evidence of fracture, subluxation, or perched facet. There is mild multilevel degenerative change. IMPRESSION: MILD MULTILEVEL DEGENERATIVE CHANGE. NO EVIDENCE OF FRACTURE, SUBLUXATION, OR PERCHED FACET. JOB NUMBER: [id number] [facility]
== END 2018-05-06 12:30 | disposition short-term general hospital (02) ==
LOC: ER 09:28
DX: S06.5X9A Traumatic subdural hemorrhage with loss of consciousness of unspecified duration, initial encounter (principal); S51.011A Laceration without foreign body of right elbow, initial encounter; N30.00 Acute cystitis without hematuria; R40.2412 Glasgow coma scale score 13-15, at arrival to emergency department; I10 Essential (primary) hypertension; F03.90 Unspecified dementia, unspecified severity, without behavioral disturbance, psychotic disturbance, mood disturbance, and anxiety; W19.XXXA Unspecified fall, initial encounter; Y92.009 Unspecified place in unspecified non-institutional (private) residence as the place of occurrence of the external cause
CPT/HCPCS: 70450; 72125; 80053; 81001; 85025; 96361; 96365; 99285; J7030